=== PATIENT | female | born 1940 | race Caucasian/White ===

== ENCOUNTER → 2018-04-27 12:35 | Outpatient (CLI) | payer MEDICARE, OTHER, SELFPAY ==
--- NOTE | 2018-04-27 12:39 | BI_ITS ---
MAMMOGRAPHY - BILATERAL SCREENING REASON FOR EXAM: Female, 77 years old. Routine annual screening examination. PERTINENT HISTORY: Daughter with breast cancer. Grandmother with breast cancer. TECHNIQUE: Digital bilateral breast lois (3D mammographic acquisition) in the CC and MLO projections. 2-D mediolateral oblique (MLO) and craniocaudad (CC) views of both breasts were obtained. CAD: Full Field Digital Mammography with Computer Added Detection was performed. COMPARISON: Comparison is made with prior study dated December 13, 2016. FINDINGS: Breast Composition: The breasts are heterogeneously dense, which may obscure small masses. There are no dominant masses or suspicious calcifications. There are 3 subcentimeter well-defined nodular densities in the upper lateral portion of the left breast as compared to prior examination. These may represent small cysts. Correlation with ultrasound is recommended. No other significant abnormalities are identified. BI/SCREENING MAMM (CAD), BILAT IMPRESSION: There are 3 subcentimeter nodules in the left breast as described. Correlation with ultrasound is recommended. ASSESSMENT CATEGORY: BIRADS Category 0: Incomplete. Need additional imaging evaluation. A letter regarding these results will be sent to the patient by the facility within 30 days. Approximately 10% of breast cancers are not detected by mammography. A normal mammogram should not delay biopsy of a clinically suspicious abnormality. [id number] Electronically Signed: Florentino Narvaez MD at 13:35 EST Tel [phone], Service support ,
== END ==
PROVIDERS: Family Provider Family Medicine; PCP Family Medicine; Referring Provider Family Medicine; Visit Provider Family Medicine
DX: Z12.31 Encounter for screening mammogram for malignant neoplasm of breast (principal)
CPT/HCPCS: 77063; 77067

== ENCOUNTER → 2018-05-02 09:12 | Outpatient (CLI) | payer MEDICARE, OTHER, SELFPAY ==
--- NOTE | 2018-05-02 09:14 | US_ITS ---
STUDY: ULTRASOUND BREAST - LEFT REASON FOR EXAM: Female, 77 years old. Abnormal screening mammogram. TECHNIQUE: Axial and longitudinal images of the LEFT breast were performed with a high resolution ultrasound transducer. COMPARISON: Comparison is made with prior mammogram dated April 27, 2018 and prior ultrasound of the left breast dated December 23, 2011. FINDINGS: LEFT Breast: 3 subcentimeters cysts are seen. The cysts are located at the 2:00 radiant of the left breast. The largest measures 9 mm x 8 mm x 7 mm. There is also evidence of dilated subareolar ducts. US/Breast Limited Unilateral IMPRESSION: 3 small cysts are seen at the 2:00 position of the breast. Dilated retroareolar areolar ducts. ASSESSMENT CATEGORY: BIRADS Category 2: Benign. A letter regarding these results will be sent to the patient by the facility within 30 days. Electronically Signed: Florentino Narvaez MD at 10:55 EST Tel [phone], Service support ,
== END ==
PROVIDERS: Family Provider Family Medicine; PCP Family Medicine; Referring Provider Family Medicine; Visit Provider Family Medicine
DX: R92.8 Other abnormal and inconclusive findings on diagnostic imaging of breast (principal)
CPT/HCPCS: 76642

== ENCOUNTER 2018-05-06 05:31 | Day surgery (SDC) | payer MEDICARE, OTHER, SELFPAY ==
[2018-05-06 05:52] VITALS: BP 119/69; PULSE 60; RESP 18; TEMP 36.2; O2SAT 97; BMI 30.4
--- NOTE | 2018-05-06 06:17 | HP.PCM_ITS ---
Problem List (1) Personal history of colonic polyps Status: Acute History of Present Illness Date of Admission: 05/06/18 The patient is a 77 year old F who has a personal history of colon polyps. She otherwise enjoys good health. Most recent colonoscopy was 1 year ago.. 6 poly ps were identified in the cecum and one polyp was identified in the transverse colon. All of these were tubular adenoma. She denies bright red blood per rectum or melena. No abdominal pain. She has had 5 previous colonoscopies. There is no family history of colon cancer. Past Medical History Allergies Penicillins [PCN] Allergy (Mild, Verified 05/06/18 06:06) Rash A CHILD Home Medications: Ambulatory Orders Medication Instructions Recorded Atorvastatin Calcium [Lipitor] 10 mg PO QHS 05/04/18 Bisoprol/Hydrochlorothiazide [Ziac 1 tab PO DAILY 05/04/18 10/6.25 MG Tablet] Chlorpheniramine Maleate 4 mg PO DAILY 05/04/18 [Aller-Chlor] Losartan Potassium [Cozaar] 100 mg PO DAILY 05/04/18 Metformin HCl [Glucophage] 500 mg PO BIDCM 05/04/18 Multivitamins,Therapeutic 1 tablet PO DAILY 05/04/18 [Multivitamin] Sertraline HCl [Zoloft] 100 mg PO DAILY 05/04/18 Sitagliptin Phosphate [Januvia] 100 mg PO DAILY 05/04/18 Smoking Status: Never smoker Tobacco Use: Non-smoker Review of Systems Constitutional: Denies: Anorexia HEENT: Denies: Difficulty Swallowing Cardiovascular: Denies: Chest Pain Respiratory: Denies: Cough Gastrointestinal: Denies: Abdominal Pain Endocrine: Denies: Change in Body Habitus VTE Information - Inpt Only VTE Present on Admission: No Patient Problems: Active and Suspected Problems Personal history of colonic polyps (Acute) - Physical Exam General: Alert, Oriented x3, Cooperative Oral: Moist Mucosa Neck: Supple Lungs: Clear to auscultation Cardiovascular: Regular rate, Regular Rhythm Abdomen: Bowel Sounds Present, Soft, Non Tender Extremities: No clubbing Neurological: Cranial nerves II-XII grossly intact Psych/Mental Status: Normal Affect Vital Signs Temp Pulse Resp BP Pulse Ox 97.2 F L 60 18 119/69 97 05/06/18 05:52 05/06/18 05:52 05/06/18 05:52 05/06/18 05:52 05/06/18 05:52 Oxygen Delivery Method Room Air Weight: 166 lb 6.4 oz Body Mass Index (BMI) 30.4 Assessment/Plan All Active Problems Personal history of colonic polyps (Acute) I recommended colonoscopy with possible biopsy or polypectomy as indicated. She is aware of the technique, benefits, risks, alternatives. She has had an opportunity to ask and have questions answered. We will proceed as noted. She presents via our open access program today. Ramírez Aguilera M.D., F.A.C.S.
--- NOTE | 2018-05-06 06:30 | COLBX_PTH ---
PATIENT: DOC DICK LOC: EN U#:[id number] AGE/SX: 77/F ROOM: RE05/06/[address]: Dr. Ramírez Aguilera MD : 1940 BED: DIS: 05/06/2018 SPEC #: [id number] RECD: 05/06/18 08:59 STATUS: AMY AUGUSTINE #: [id number] LEX: 05/06/18 06:[address]: Ramírez Aguilera DEPT: SURGICAL PATHOLOGY RECD BY: Renato Trujillo ENTERED: 05/06/18 10:36 SP TYPE: COLON BX OTHR DR: Dr. Enrique Agarwal MD Tissues: A - Ascending colon B - Transverse colon C - Transverse colon D - Rectum, NOS Procedures: Surgery Specimen Level IV HEADER OPERATION: Colonoscopy (MOD) PRE-OP DIAGNOSIS: History colon polyps TISSUE SUBMITTED: A - Proximal ascending colon polyp biopsy, B - Proximal transverse polyp snare and polyp biopsy, C - Mid transverse polyp snare, D - Rectal polyp MICROSCOPIC DIAGNOSIS A. Proximal ascending colon polyp, biopsy: Tubular adenoma. B. Proximal transverse colon polyp, biopsy: Fragments of tubular adenoma. C. Mid transverse colon polyp, biopsy: Tubular adenoma. D. Rectal polyp, biopsy: Fragment of colonic mucosa with focal hyperplastic change. AM:angie 05/09/18 MICROSCOPIC DESCRIPTION Slides are reviewed. GROSS DESCRIPTION A - Received in fixative is one container labeled with the patient's name and designated proximal ascending polyp biopsy. The specimen consists of two irregular fragments of light perez soft tissue that in aggregate measure 0.5 x 0.2 x 0.1 cm. The specimen is totally submitted in one cassette. B - Received in fixative is one container labeled with the patient's name and designated proximal transverse polyp snare biopsy. The specimen consists of multiple irregular fragments of light perez soft tissue that in aggregate measure 2 x 0.5 x 0.1 cm. The specimen is totally submitted in one cassette. C - Received in fixative is one container labeled with the patient's name and designated mid transverse polyp snare. The specimen consists of a piece of perez-pink polyp measuring 0.7 x 0.6 x 0.3 cm. The specimen is totally submitted in one cassette. D - Received in fixative is one container labeled with the patient's name and designated rectal polyp. The specimen consists of a piece of perez-pink polyp measuring 0.3 x 0.2 x 0.1 cm. The specimen is totally submitted in one cassette. / SJ:angie 05/06/18 TC:5 CPT: 65448 x4
[2018-05-06 07:05] VITALS: BP 102/54; BP 109/52; BP 110/58; BP 110/66; BP 112/47; BP 115/64; BP 119/69; BP 120/103; BP 123/65; BP 138/60; PULSE 58; RESP 16; TEMP 36.4; O2SAT 87; O2SAT 89; O2SAT 94; O2SAT 98; O2SAT 99
--- NOTE | 2018-05-06 07:08 | OP.ENDO_ITS ---
Patient Name: Lala Archuleta Procedure Date: 05/06/2018 6:11 AM Date of : 1940 Age: 77 Procedure: Colonoscopy Indications: High risk colon cancer surveillance: Personal history of colonic polyps Providers: Ramírez Aguilera MD Referring MD: Enrique Agarwal Medicines: Midazolam 2.5 mg IV, Meperidine 75 mg IV Patient Profile: Last Colonoscopy: 1 year ago. Complications: No immediate complications. Procedure: Pre-Anesthesia Assessment: - Prior to the procedure, a History and Physical was performed, and patient medications and allergies were reviewed. The patient's tolerance of previous anesthesia was also reviewed. The risks and benefits of the procedure and the sedation options and risks were discussed with the patient. All questions were answered, and informed consent was obtained. Prior Anticoagulants: The patient has taken no previous anticoagulant or antiplatelet agents. ASA Grade Assessment: II - A patient with mild systemic disease. After reviewing the risks and benefits, the patient was deemed in satisfactory condition to undergo the procedure. After I obtained informed consent, the scope was passed under direct vision. Throughout the procedure, the patient's blood pressure, pulse, and oxygen saturations were monitored continuously. The colonoscope was introduced through the anus and advanced to the cecum, identified by appendiceal orifice and ileocecal valve. The colonoscopy was somewhat difficult due to a tortuous colon. The patient tolerated the procedure well. The quality of the bowel preparation was good. The ileocecal valve was photographed. Moderate Sedation: Moderate (conscious) sedation was personally administered by the endoscopist. The following parameters were monitored: oxygen saturation, heart rate, blood pressure, and response to care. Total physician intraservice time was 25 minutes. Scope In: 6:31:52 AM Scope Withdrawal Time 0 hours 16 minutes 45 seconds Scope Out: 7:00:32 AM Total Procedure Duration Time 0 hours 28 minutes 40 seconds Findings: Hemorrhoids were found on perianal exam. Multiple diverticula were found in the sigmoid colon and descending colon. A 5 mm polyp was found in the proximal ascending colon. The polyp was sessile. The polyp was removed with a cold biopsy forceps. Resection and retrieval were complete. A 6 mm polyp was found in the proximal transverse colon. The polyp was sessile. The polyp was removed with a hot snare. Resection and retrieval were complete. A 9 mm polyp was found in the mid transverse colon. The polyp was semi-pedunculated. The polyp was removed with a hot snare. Resection and retrieval were complete. A 5 mm polyp was found in the rectum. The polyp was sessile. The polyp was removed with a hot snare. Resection and retrieval were complete. Impression: - Hemorrhoids found on perianal exam. - Diverticulosis in the sigmoid colon and in the descending colon. - One 5 mm polyp in the proximal ascending colon, removed with a cold biopsy forceps. Resected and retrieved. - One 6 mm polyp in the proximal transverse colon, removed with a hot snare. Resected and retrieved. A small adjacent polyp was removed with cold forceps in the proximal transverse colon - One 9 mm polyp in the mid transverse colon, removed with a hot snare. Resected and retrieved. - One 5 mm polyp in the rectum, removed with a hot snare. Resected and retrieved. Recommendation: - Repeat colonoscopy in 1 year for surveillance. - Telephone my office for pathology results in 1 week. - Discharge patient to home. - Resume previous diet. - Continue present medications. Procedure Code(s): --- Professional --- 23589, Colonoscopy, flexible; with removal of tumor(s), polyp(s), or other lesion(s) by snare technique 95562, 59, Colonoscopy, flexible; with biopsy, single or multiple 05651, 59, Moderate sedation services provided by the same physician or other qualified health animal care giver performing the diagnostic or therapeutic service that the sedation supports, requiring the presence of an independent trained observer to assist in the monitoring of the patient's level of consciousness and physiological status; initial 15 minutes of intraservice time, patient age 5 years or older [address]79, Moderate sedation services provided by the same physician or other qualified health animal care giver performing the diagnostic or therapeutic service that the sedation supports, requiring the presence of an independent trained observer to assist in the monitoring of the patient's level of consciousness and physiological status; each additional 15 minutes intraservice time (List separately in addition to code for primary service) Diagnosis Code(s): --- Professional --- Z86.010, Personal history of colonic polyps K64.9, Unspecified hemorrhoids D12.2, Benign neoplasm of ascending colon D12.3, Benign neoplasm of transverse colon (hepatic flexure or splenic flexure) K62.1, Rectal polyp K57.30, Diverticulosis of large intestine without perforation or abscess without bleeding CPT copyright 2017 [employer]. All rights reserved. The codes documented in this report are preliminary and upon activity aid review may be revised to meet current compliance requirements. Ramírez Aguilera MD 05/06/2018 7:08:19 AM This report has been signed electronically. Number of Addenda: 0 Note Initiated On: 05/06/2018 6:11 AM
[2018-05-06 07:10] VITALS: BP 110/54; BP 119/69; PULSE 62; RESP 18; O2SAT 94
[2018-05-06 07:15] VITALS: BP 108/54; BP 119/69; PULSE 58; RESP 16; O2SAT 94
[2018-05-06 07:20] VITALS: BP 100/47; BP 119/69; PULSE 58; RESP 18; TEMP 36.5; O2SAT 93
[2018-05-06 07:43] VITALS: BP 119/69
--- OUTSIDE RECORDS SUMMARY | 2018-06-21 17:23 | XMS RPT_ITS ---
:1940 Author Organization OHIP Care Team Providers Name Role Phone CHIQUITA TUCKER II Attending Unavailable Ramírez Aguilera Attending Unavailable Ramírez Aguilera Referring Unavailable SUPA SMITH Primary Care Unavailable Ramírez Aguilera Consulting Unavailable Nurse, Surgery Attending Unavailable SUPA SMITH Referring Unavailable Ramírez Aguilera Attending Unavailable Ramírez Aguilera Referring Unavailable SUPA SMITH Primary Care Unavailable SUPA MSITH Attending Unavailable SUPA SMITH Referring Unavailable SUPA SMITH Primary Care Unavailable SUPA SMITH Attending Unavailable SUPA SMITH Referring Unavailable SUPA SMITH Primary Care Unavailable PROBLEMS PROBLEMS No Problem Records FoundPROCEDURES PROCEDURES No Procedure Records FoundRESULTS RESULTS OPERATIVE REPORT - Observed: 05/06/2018 Status: F Source: [facility] ENDOSCOPY 7:08 AM [facility] REPOSITORY [facility] Medical Records Department [address] [place] [address] Operative Report - Endoscopy MR#: [id number] Acct: [id number] Name: LALA DICK Rep #: [id number] : 1940 77 From: Ramírez Aguilera MD PCP: Supa Smith MD [place] [facility] [place] Name: Lala Dick Procedure Date: 05/06/2018 6:11 AM Date of : 1940 Age: 77 Procedure: Colonoscopy Indications: High risk colon cancer surveillance: Personal history of colonic polyps Providers: Ramírez Aguilera MD Referring MD: Supa Smith Medicines: Midazolam 2.5 mg IV, Meperidine 75 mg IV Patient Profile: Last Colonoscopy: 1 year ago. Complications: No immediate complications. Procedure: Pre-Anesthesia Assessment: - Prior to the procedure, a History and Physical was performed, and patient medications and allergies were reviewed. The patient's tolerance of previous anesthesia was also reviewed. The risks and benefits of the procedure and the sedation options and risks were discussed with the patient. All questions were answered, and informed consent was obtained. Prior Anticoagulants: The patient has taken no previous anticoagulant or antiplatelet agents. ASA Grade Assessment: II - A patient with mild systemic disease. After reviewing the risks and benefits, the patient was deemed in satisfactory condition to undergo the procedure. After I obtained informed consent, the scope was passed under direct vision. Throughout the procedure, the patient's blood pressure, pulse, and oxygen saturations were monitored continuously. The colonoscope was introduced through the anus and advanced to the cecum, identified by appendiceal orifice and ileocecal valve. The colonoscopy was somewhat difficult due to a tortuous colon. The patient tolerated the procedure well. The quality of the bowel preparation was good. The ileocecal valve was photographed. Moderate Sedation: Moderate (conscious) sedation was personally administered by the endoscopist. The following parameters were monitored: oxygen saturation, heart rate, blood pressure, and response to care. Total physician intraservice time was 25 minutes. Scope In: 6:31:52 AM Scope Withdrawal Time 0 hours 16 minutes 45 seconds Scope Out: 7:00:32 AM Total Procedure Duration Time 0 hours 28 minutes 40 seconds Findings: Hemorrhoids were found on perianal exam. Multiple diverticula were found in the sigmoid colon and descending colon. A 5 mm polyp was found in the proximal ascending colon. The polyp was sessile. The polyp was removed with a cold biopsy forceps. Resection and retrieval were complete. A 6 mm polyp was found in the proximal transverse colon. The polyp was sessile. The polyp was removed with a hot snare. Resection and retrieval were complete. A 9 mm polyp was found in the mid transverse colon. The polyp was semi-pedunculated. The polyp was removed with a hot snare. Resection and retrieval were complete. A 5 mm polyp was found in the rectum. The polyp was sessile. The polyp was removed with a hot snare. Resection and retrieval were complete. Impression: - Hemorrhoids found on perianal exam. - Diverticulosis in the sigmoid colon and in the descending colon. - One 5 mm polyp in the proximal ascending colon, removed with a cold biopsy forceps. Resected and retrieved. - One 6 mm polyp in the proximal transverse colon, removed with a hot snare. Resected and retrieved. A small adjacent polyp was removed with cold forceps in the proximal transverse colon - One 9 mm polyp in the mid transverse colon, removed with a hot snare. Resected and retrieved. - One 5 mm polyp in the rectum, removed with a hot snare. Resected and retrieved. Recommendation: - Repeat colonoscopy in 1 year for surveillance. - Telephone my office for pathology results in 1 week. - Discharge patient to home. - Resume previous diet. - Continue present medications. Procedure Code(s): --- Professional --- 62166, Colonoscopy, flexible; with removal of tumor(s), polyp(s), or other lesion(s) by snare technique 77270, 59, Colonoscopy, flexible; with biopsy, single or multiple 63755, 59, Moderate sedation services provided by the same physician or other qualified health medical care evaluation specialist performing the diagnostic or therapeutic service that the sedation supports, requiring the presence of an independent trained observer to assist in the monitoring of the patient's level of consciousness and physiological status; initial 15 minutes of intraservice time, patient age 5 years or older 11889, Moderate sedation services provided by the same physician or other qualified health medical care evaluation specialist performing the diagnostic or therapeutic service that the sedation supports, requiring the presence of an independent trained observer to assist in the monitoring of the patient's level of consciousness and physiological status; each additional 15 minutes intraservice time (List separately in addition to code for primary service) Diagnosis Code(s): --- Professional --- Z86.010, Personal history of colonic polyps K64.9, Unspecified hemorrhoids D12.2, Benign neoplasm of ascending colon D12.3, Benign neoplasm of transverse colon (hepatic flexure or splenic flexure) K62.1, Rectal polyp K57.30, Diverticulosis of large intestine without perforation or abscess without bleeding CPT copyright 2017 [employer]. All rights reserved. The codes documented in this report are preliminary and upon orthopedic coder review may be revised to meet current compliance requirements. Ramírez Aguilera MD 05/06/2018 7:08:19 AM This report has been signed electronically. Number of Addenda: 0 Note Initiated On: 05/06/2018 6:11 AM 05/06/18707 Date Ramírez Aguilera MD Cosigner Signature: Date (if indicated) CC: Supa Smith MD; Ramírez Aguilera MD Date Dictated: 05/06/18610 Date Transcribed: Gm Video: ANSON Signed COLON BIOPSY (CHOOSE Observed: 05/06/2018 Status: F Source: [facility]) 6:30 AM [facility] REPOSITORY Patient: LALA DICK : 1940 (77/F) Acct Num: [id number] Phys: Ramírez Aguilera MD Unit Num: [id number] Loc: EN Specimen: [id number] Received: 05/06/1859 Spec Type: COLON BX TISSUES 1 TISSUES: A. Ascending colon B. Transverse colon C. Transverse colon D. Rectum, NOS GROSS DESCRIPTION A - Received in fixative is one container labeled with the patient's name and designated proximal ascending polyp biopsy. The specimen consists of two irregular fragments of light perez soft tissue that in aggregate measure 0.5 x 0.2 x 0.1 cm. The specimen is totally submitted in one cassette. B - Received in fixative is one container labeled with the patient's name and designated proximal transverse polyp snare biopsy. The specimen consists of multiple irregular fragments of light perez soft tissue that in aggregate measure 2 x 0.5 x 0.1 cm. The specimen is totally submitted in one cassette. C - Received in fixative is one container labeled with the patient's name and designated mid transverse polyp snare. The specimen consists of a piece of perez-pink polyp measuring 0.7 x 0.6 x 0.3 cm. The specimen is totally submitted in one cassette. D - Received in fixative is one container labeled with the patient's name and designated rectal polyp. The specimen consists of a piece of perez-pink polyp measuring 0.3 x 0.2 x 0.1 cm. The specimen is totally submitted in one cassette. / SJ:angie 05/06/18 TC:5 CPT: 20410 x4 HEADER OPERATION: Colonoscopy (MOD) PRE-OP DIAGNOSIS: History colon polyps TISSUE SUBMITTED: A - Proximal ascending colon polyp biopsy, B - Proximal transverse polyp snare and polyp biopsy, C - Mid transverse polyp snare, D - Rectal polyp MICROSCOPIC DESCRIPTION Slides are reviewed. MICROSCOPIC DIAGNOSIS A. Proximal ascending colon polyp, biopsy: Tubular adenoma. B. Proximal transverse colon polyp, biopsy: Fragments of tubular adenoma. C. Mid transverse colon polyp, biopsy: Tubular adenoma. D. Rectal polyp, biopsy: Fragment of colonic mucosa with focal hyperplastic change. AM:angie 05/09/18 Signed Jose De Jesus Marin DO 05/09/18 <signature on file> Performed By: #### PCOLBX #### [facility] [address] [place], [address] HISTORY AND PHYSICAL Observed: 05/06/2018 Status: F Source: DONNA EXAM 6:19 AM [facility] REPOSITORY [facility] Medical Records Department [address] [address] [place] [address] History and Physical 05/06/18 0611 MR#: [id number] Acct: [id number] Name: LALA DICK Rep #: [id number] : 1940 77 From: Ramírez Aguilera MD PCP: Supa Smith MD Status: REG [facility] Y Location: [place] [address]- Problem List (1) Personal history of colonic polyps Status: Acute History of Present Illness Date of Admission: 05/06/18 The patient is a 77 year old F who has a personal history of colon polyps. She otherwise enjoys good health. Most recent colonoscopy was 1 year ago.. 6 polyps were identified in the cecum and one polyp was identified in the transverse colon. All of these were tubular adenoma. She denies bright red blood per rectum or melena. No abdominal pain. She has had 5 previous colonoscopies. There is no family history of colon cancer. Past Medical History Allergies Penicillins [PCN] Allergy (Mild, Verified 05/06/18 06:06) Rash A CHILD Home Medications: Ambulatory Orders Medication Instructions Recorded Atorvastatin Calcium [Lipitor] 10 mg PO QHS 05/04/18 Bisoprol/Hydrochlorothiazide [Ziac 1 tab PO DAILY 05/04/18 Smoking Status: Never smoker Tobacco Use: Non-smoker Review of Systems Constitutional: Denies: Anorexia HEENT: Denies: Difficulty Swallowing Cardiovascular: Denies: Chest Pain Respiratory: Denies: Cough Gastrointestinal: Denies: Abdominal Pain Endocrine: Denies: Change in Body Habitus VTE Information - Inpt Only VTE Present on Admission: No Patient Problems: Active and Suspected Problems Personal history of colonic polyps (Acute) - Physical Exam General: Alert, Oriented x3, Cooperative Oral: Moist Mucosa Neck: Supple Lungs: Clear to auscultation Cardiovascular: Regular rate, Regular Rhythm Abdomen: Bowel Sounds Present, Soft, Non Tender Extremities: No clubbing Neurological: Cranial nerves II-XII grossly intact Psych/Mental Status: Normal Affect Vital Signs Temp Pulse Resp BP Pulse Ox 97.2 F L 60 18 119/69 97 05/06/18 05:52 05/06/18 05:52 05/06/18 05:52 05/06/18 05:52 05/06/18 05:52 Oxygen Delivery Method Room Air Weight: 166 lb 6.4 oz Body Mass Index (BMI) 30.4 Assessment/Plan All Active Problems Personal history of colonic polyps (Acute) I recommended colonoscopy with possible biopsy or polypectomy as indicated. She is aware of the technique, benefits, risks, alternatives. She has had an opportunity to ask and have questions answered. We will proceed as noted. She presents via our open access program today. Ramírez Aguilera M.D., F.A.C.S. 05/06/18 0619 <Electronically signed by Ramírez Aguilera MD> Date Ramírez Aguilera MD Cosigner Signature: Date (if applicable) CC: Supa Smith MD; Ramírez Aguilera MD Signed BREAST LIMITED Observed: 05/02/2018 Status: F Source: [facility] UNILATERAL 9:15 AM [facility] REPOSITORY [facility] Imaging Services [address] [place] [address] Breast Limited Unilateral MR#: [id number] Acct: [id number] Name: LALA DICK Rep #: [id number] : 1940 F 77 From: Florentino Narvaez MD PCP: Supa Smith MD Status: REG CLI Study: Breast Limited Unilateral Date of Exam: 05/02/18 Exam# [id number] Ordering Dr: Supa Smith MD STUDY: ULTRASOUND BREAST - LEFT REASON FOR EXAM: Female, 77 years old. Abnormal screening mammogram. TECHNIQUE: Axial and longitudinal images of the LEFT breast were performed with a high resolution ultrasound transducer. COMPARISON: Comparison is made with prior mammogram dated April 27, 2018 and prior ultrasound of the left breast dated December 23, 2011. FINDINGS: LEFT Breast: 3 subcentimeters cysts are seen. The cysts are located at the 2:00 radiant of the left breast. The largest measures 9 mm x 8 mm x 7 mm. There is also evidence of dilated subareolar ducts. US/Breast Limited Unilateral IMPRESSION: 3 small cysts are seen at the 2:00 position of the breast. Dilated retroareolar areolar ducts. ASSESSMENT CATEGORY: BIRADS Category 2: Benign. A letter regarding these results will be sent to the patient by the facility within 30 days. Electronically Signed: Florentino Narvaez MD at 10:55 EST Tel [phone], Service support , CC: Supa Smith MD Gm Video: Signed SCREENING MAMM (CAD), Observed: 04/27/2018 Status: F Source: [facility] 12:40 PM [facility] REPOSITORY [facility] Imaging Services [address] [place] [address] SCREENING MAMM (CAD), [facility] MR#: [id number] Acct: [id number] Name: LALA DICK Rep #: [id number] : 1940 F 77 From: Florentino Narvaez MD PCP: Supa Smith MD Status: REG CLI Study: SCREENING MAMM (CAD), BIL Date of Exam: 04/27/18 Exam# [id number] Ordering Dr: Supa Smith MD MAMMOGRAPHY - BILATERAL SCREENING REASON FOR EXAM: Female, 77 years old. Routine annual screening examination. PERTINENT HISTORY: Daughter with breast cancer. Grandmother with breast cancer. TECHNIQUE: Digital bilateral breast lois (3D mammographic acquisition) in the CC and MLO projections. 2-D mediolateral oblique (MLO) and craniocaudad (CC) views of both breasts were obtained. CAD: Full Field Digital Mammography with Computer Added Detection was performed. COMPARISON: Comparison is made with prior study dated December 13, 2016. FINDINGS: Breast Composition: The breasts are heterogeneously dense, which may obscure small masses. There are no dominant masses or suspicious calcifications. There are 3 subcentimeter well-defined nodular densities in the upper lateral portion of the left breast as compared to prior examination. These may represent small cysts. Correlation with ultrasound is recommended. No other significant abnormalities are identified. BI/SCREENING MAMM (CAD), BILAT IMPRESSION: There are 3 subcentimeter nodules in the left breast as described. Correlation with ultrasound is recommended. ASSESSMENT CATEGORY: BIRADS Category 0: Incomplete. Need additional imaging evaluation. A letter regarding these results will be sent to the patient by the facility within 30 days. Approximately 10% of breast cancers are not detected by mammography. A normal mammogram should not delay biopsy of a clinically suspicious abnormality. [id number] Electronically Signed: Florentino Narvaez MD at 13:35 EST Tel [phone], Service support , CC: Supa Smith MD Gm Video: Signed PROGRESS Observed: 03/29/2018 Status: COMPLETED Source: [place] 2:24 PM [facility] REPOSITORY HNO ID: [id number] Author: Chiquita Tucker II Service: (none) Author Type: TRACK AND FIELD COACH Type: Progress Notes Filed: 03/29/2018 2:29 PM Note Text: Assessment and Plan H52.13 Myopia, bilateral (primary encounter diagnosis) H52.4 Presbyopia H52.223 Regular astigmatism of both eyes Comment: Shift in glasses power demonstrated to patient. Update glasses as desired. E11.9 Controlled type 2 diabetes mellitus without complication, without long-term current use of insulin ([facility]) Comment: Examination shows no ocular diabetic complications today. Discussed need for optimal diabetes control to minimize chance of ocular complications. Advise patient to immediately report worsening in status or additional symptoms. Continue yearly dilated eye examinations. 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 Patient defers surgical correction until a later time. Recheck in one year. H43.393 Vitreous floaters of both eyes Comment: Vitreal floaters stable both eyes. Retinas flat and intact with no apparent retinal tear or traction. Monitor yearly. I have confirmed and edited as necessary the relevant ophthalmic history, ROS, and the neuro exam findings as obtained by others. I have seen and examined Lala Dick. I have discussed the case and the management of this patient's care with the Resident/Fellow, if applicable. I also have reviewed and agree with the assessment and plan as stated above and agree with all of its relevant components. Chiquita Tucker, II, OD ALLERGIES ALLERGIES DATE TYPE / CODE NAME / CODE REACTION SEVERITY SOURCE 05/06/2018 Drug Penicillins/T92805 Rash [place] Samir Allergy/416 0476(RXNORM) [facility] 027878([facility] ED CT) Repository 08/16/2009 Drug PENICILLINS [facility] Class/51555 Main [place] 1003[facility] ENCOUNTERS ENCOUNTERS ADMIT/DISCHARGE ACCOUNT ADMITTING ENCOUNTER LOCATION SOURCE NUMBER CLASS 05/06/2018 [id number] Ambulatory BMSBuilding:Kim Dawson MS.CF.[facility] Repository 05/06/2018/05/06/[id number] ing:ENRoom: Repository AC10 05/02/2018 [id number] Ambulatory [facility] ing:OPUS Repository 04/27/2018 [id number] [facility] ing:OPBI Repository 04/11/2018/04/11/20 [id number] Ambulatory BMSBuilding:Kim Dawson 18 MS.[facility] Repository 03/29/2018/03/30/20 [id number] Ambulatory [address] Repository PAYERS PAYERS ENCOUNTER GUARANTOR PAYER SUBSCRIBER SOURCE 05/06/2018 LALA Dumas Primary Insurance:MAUTRENÉE [id number] [facility] Number: MAYELINDOB: [facility] MEBJWDRBEffective [id number], Date:8423-60-81UL BOX Repository [place] [address]Fis: [id number] ALVIN SALAS [address]WP: [phone] 05/06/2018 Secondary LALA E [place] Insurance:GUARANTEE TAYLORDOB: Community [employer] COPolicy [id number] Hospital Number: Repository [id number] Date:3128-02-78BV [address] [place] [address]SD: 05/06/2018 Tertiary Insurance:SELF NOT GIVENUNK [place] PAY INSURANCEPolicy Community Number: Effective Hospital Date:2018-05-06 Repository 05/06/2018 LALA E Primary Insurance:AETNA LALA E [place] [id number] MCRPolicy Number: TAYLORDOB: [facility] BJWDRBAnthonylds hospital [id number] Hall Hospital, Date:9916-45-21ZB BOX Repository [place] [address]Xzv: [id number] PARSONS [address]WP: [phone] 05/06/2018 Secondary LALA E [place] Insurance:GUARANTEE TAYLORDOB: Community [employer] COPolicy [id number] Hospital Number: Repository [id number] Date:5650-69-09TP [address] [place] [address]IH: 05/06/2018 Tertiary Insurance:SELF NOT GIVENUNK [place] PAY INSURANCEPolicy Community Number: Effective Hospital Date:2018-04-11 Repository 05/02/2018 LALA E Primary Insurance:AETNA LALA E [place] [id number] MCRPolicy Number: TAYLORDOB: [facility]BJWDRBAnthonyive [id number] Hall Hospital, Date:2283-85-57OT BOX Repository [place] [address]Qct: [id number] [address]WP: [phone] 05/02/2018 Secondary LALA E [place] Insurance:GUARANTEE TAYLORDOB: Community [employer] COPolicy [id number] Hospital Number: Repository [id number] Date:7409-55-68EF [address] [place] [address]OD: 05/02/2018 Tertiary Insurance:SELF NOT GIVENUNK [place] PAY INSURANCEPolicy Community Number: Effective Hospital Date:2018-04-28 Repository 04/27/2018 LALA E Primary Insurance:AETNA LALA E Sam[place] [id number] [facility] Number: MAYELINDOB: [facility] IndianaBJWDRBEffective [id number] Hall Hospital, Date:5681-61-26BK [address]OX Repository [place] [address]Jnq: [id number] [address]WP: [phone] 04/27/2018 Secondary LALA E [place] Insurance:GUARANTEE TAYLORDOB: Community [employer] COPolicy [id number] Hospital Number: Repository [id number] Date:5454-63-46JX [address] [place] [address]YH: 04/27/2018 Tertiary Insurance:SELF NOT GIVENUNK Samir PAY INSURANCEPolicy Community Number: Effective Hospital Date:2018-04-26 Repository 04/11/2018 LALA E Primary Insurance:AETNA LALA E [place] [id number] [facility]ITALPolicy Number: MAYELINDOB: [facility] IndianaBJWDRBEffective [id number] [facility] Date:6532-39-46AI [address] Repository [place], [place] [address]Juh: [id number] [place] [address]WP: [phone] 04/11/2018 Secondary LALA E Samir Insurance:GUARANTEE TAYLORDOB: Community [employer] COPolicy [id number] Hospital Number: Repository [id number] Date:3696-57-07CD [address] [place] [address]FC: 04/11/2018 Tertiary Insurance:SELF NOT GIVENUNK Samir PAY INSURANCEPolicy Community Number: Effective Hospital Date:2018-04-11 Repository
== END 2018-05-06 08:51 | disposition home or self-care (01) ==
LOC: EN 05:32 → AC 05:33
PROVIDERS: Family Provider Family Medicine; PCP Family Medicine; Referring Provider Surgery; Visit Provider Surgery
PROC: 0DJD8ZZ Inspection of Lower Intestinal Tract, Via Natural or Artificial Opening Endoscopic (ICD-10-PCS; CPT 45378; principal; 2018-05-06 06:25)
DX: D12.2 Benign neoplasm of ascending colon (principal); D12.3 Benign neoplasm of transverse colon; K62.1 Rectal polyp; K64.9 Unspecified hemorrhoids; K57.30 Diverticulosis of large intestine without perforation or abscess without bleeding; Z86.010 Personal history of colon polyps
CPT/HCPCS: 45380; 45385; 88305; 99152; 99153; J7120

== ENCOUNTER → 2019-10-25 10:44 | Outpatient (CLI) | payer MEDICARE, OTHER, SELFPAY ==
--- NOTE | 2019-10-25 10:49 | BI_ITS ---
MAMMOGRAPHY - BILATERAL SCREENING REASON FOR EXAM: Female, 79 years old. Routine annual screening examination. PERTINENT HISTORY: Daughter with breast cancer. Grandmother with breast cancer. Aunt with breast cancer. TECHNIQUE: Digital bilateral breast david (3D mammographic acquisition) in the CC and MLO projections. 2-D mediolateral oblique (MLO) and craniocaudad (CC) views of both breasts were obtained. CAD: Full Field Digital Mammography with Computer Added Detection was performed. COMPARISON: Comparison is made with prior examination dated April 27, 2018 and June 15, 2016. FINDINGS: Breast Composition: The breasts are heterogeneously dense, which may obscure small masses. There are no dominant masses or suspicious calcifications. 9.7 mm by 11 mm well-defined nodule in the upper lateral portion of the left breast. This has increased slightly in size as compared to prior study. Prior sonogram demonstrated 3 small cysts at that site. No other significant abnormalities are identified. There has been no significant change since the prior study. BI/SCREEN MAMM (CAD) W/DAVID BILAT IMPRESSION: Stable bilateral screening mammogram. Yearly follow-up mammogram recommended. (A) ASSESSMENT CATEGORY: BIRADS Category 2: Benign. A letter regarding these results will be sent to the patient by the facility within 30 days. Approximately 10% of breast cancers are not detected by mammography. A normal mammogram should not delay biopsy of a clinically suspicious abnormality. [id number] Electronically Signed: Florentino Narvaez, at 12:22 EDT , Service support ,
== END ==
PROVIDERS: Referring Provider Family Medicine; Visit Provider Family Medicine
DX: Z12.31 Encounter for screening mammogram for malignant neoplasm of breast (principal)
CPT/HCPCS: 77063; 77067

== ENCOUNTER 2020-04-05 06:11 | Day surgery (SDC) | payer MEDICARE, OTHER, SELFPAY ==
[2020-03-05 13:21] VITALS: BMI 30.2
[2020-04-05] VITALS (8 sets, daily range): BP systolic 94–117; BP diastolic 47–73; PULSE 59–80; RESP 16–18; TEMP 35.8–36.6; O2SAT 92–100; BMI 29.4
--- NOTE | 2020-04-05 06:22 | PCM.HP.BLA ---
Problem List (1) Personal history of colonic polyps Status: Acute History and Physical Date of Admission: 04/05/20 Intake Visit Reasons: C-Scope Chief Complaint: c-scope consult Ceiling Insulation Blower Required: No Is patient in pain?: No Allergies Penicillins [PCN] Allergy (Mild, Verified 03/05/20 13:22) Rash Medications Atorvastatin Calcium [Lipitor] 10 mg PO QHS 05/04/18 [History Confirmed 03/05/20] Bisoprol/Hydrochlorothiazide [Ziac 10/6.25 MG Tablet] 1 tab PO DAILY 05/04/18 [History Confirmed 03/05/20] Losartan Potassium [Cozaar] 100 mg PO DAILY 05/04/18 [History Confirmed 03/05/20] Multivitamins,Therapeutic [Multivitamin] 1 tab PO DAILY 05/04/18 [History Confirmed 03/05/20] Sitagliptin Phosphate [Januvia] 100 mg PO DAILY 05/04/18 [History Confirmed 03/05/20] metFORMIN HCl [Glucophage] 500 mg PO BIDCM 05/04/18 [History Confirmed 03/05/20] cholecalciferol (vitamin D3) 25 mcg (1,000 unit) capsule 25 mcg PO DAILY 03/05/20 [History Confirmed 03/05/20] [facility] Medical History Personal history of colonic polyps (Acute) Anxiety (Acute) Diabetes (Acute) Surgical History (Updated 03/05/20 @ 13:20 by Mirna Armando) History of appendectomy (Acute) History of cystoscopy (Acute) History of oophorectomy (Acute) History of right breast biopsy (Acute) history surgery left thumb (Acute) Family History (Updated 03/05/20 @ 13:21 by Mirna Armando) Daughter Breast cancer Aunt Breast cancer Mother Diabetes Brother Diabetes Heart disease Father CVA (cerebral vascular accident) Social History (Updated 03/05/20 @ 13:[address] Ramírez Aguilera MD) Smoking Status: Never smoker alcohol intake: never substance use type: does not use HPI HPI HPI: DOC DICK, is a 79 F who presents to the office today for surgical consultation regarding a personal history of multiple colon polyps. Patient's primary care physician is Dr. Enrique Agarwal and a written copy of my surgical recommendations will be returned to him.. I have assisted the patient May 06, 2018. She had multiple polyps at that time. Proximal ascending colon polyp tubular adenoma proximal transverse colon polyp tubular adenoma mid transverse colon polyp tubular adenoma and a rectal polyp which had hyperplastic change. I felt the bowel prep was good however it was noted that the patient had a tortuous colon. She additionally states that over her lifetime she has had she thinks for previous colonoscopies and she believes that she has had polyps identified on all of those. There may have been one when she did have polyps. She denies any bright red blood per rectum or melena. She is not on any anticoagulants. My was concern was due to the tortuosity and multiplicity of polyps that a shorter term colonoscopy would be pertinent. She is enjoying a good quality of life right now even though she is 79. HPI HPI HPI: DOC DICK, is a 79 F who presents to the office today for ROS General General: No weight change, appetite, fatigue, colon cancer, breast cancer or weakness HEENT HEENT: No difficulty swallowing, eye injury, eye surgery, swollen glands or hoarseness Endo Endocrine: Yes diabetes mellitus; no thyroid disease, thyroid cancer, Hair loss, heat intolerance or cold intolerance Skin Skin: No rash or changing moles Breast Breast: No left breast lump, right breast lump, nipple discharge, breast pain, abnormal mammogram, abnormal US or breast enlargement Musc Musculoskeletal: No back problems, arthritis, rheumatoid arthritis, gout or joint pain Cardio Cardiovascular: No murmur, pacemaker, heart disease, atrial fibrillation, high blood pressure, heart attack, heart stent, palpitations, shortness of breat with exertion or chest pain Psych Psychiatric: Yes anxiety; no depression or hearing voices Resp Respiratory: No shortness of breath, No sleep apnea, No cough, No COPD, No asthma, No emphysema, No wheezing Gastro Gastrointestinal: No abdominal pain, No nausea or vomiting, No diarrhea, No constipation, No blood in stool, No acid reflux, No hemorrhoids, No ulcers, No gallbladder problem, No black,tarry stools Deandre Hematologic: No blood thinners, No blood disorders, No bleeding, No anemia, No blood clots Neuro Neurologic: No system reviewed and no additional complaints, except as docu, No as per HPI, No abnormal walking, No abnormal hearing, No abnormal movements, No abnormal speech, No behavioral changes, No burning sensations, No confusion, No seizure-like activity, No unsteadiness, No dizziness, No localized weakness, No frequent falls, No headache(s), No lack of coordination, No loss of vision, No memory loss, No numbness, No other visual disturbances, No radiating pain, No restless legs, No sensory deficit, No fainting, No tingling, No tremor(s), No weakness, No other Exam Const General: cooperative, healthy appearing, comfortable Nutritional Appearance: obese Orientation: alert, awake [facility] Head: normal to inspection Eyes General: appearance normal, both eyes and all related structures Chest Chest palpation & inspection: normal inspection of the chest Breast Palpation: No nipple discharge Resp Effort & Inspection: normal respiratory effort Auscultation: clear to auscultation bilaterally Cardio Rate: regular rate Rhythm: regular rhythm Heart Sounds: no murmurs GI Inspection: normal to inspection Palpation: soft Auscultation: normal bowel sounds Musc Cervical Spine: normal cervical lordosis Neuro Cognition: normal cognition Extrem General: no calf tenderness Psych Affect: normal affect Assessment & Plan Problems 1. History of colonic polyps Z86.010 Plan I recommended the patient a colonoscopy with possible biopsy or polypectomy is indicated. She is aware of the technique, benefit, risk and alternatives. She has had an opportunity to ask and have questions answered. We will schedule and proceed at her discretion. She previously did well with IV sedation and received 2.5 mg of Versed and 75 mg of Demerol. A tortuous colon was identified consideration for possible utilization of an adult scope. Multiple polyps were previously identified. We will schedule procedure at her discretion. Copy: Dr Enrique Aguilera M.D., F.A.C.S. Orders Orders: Colonoscopy Today Z86.010 Coding Level of Care Code Off vis,est,level 2 Diagnoses History of colonic polyps Z86.010 I have re-examined the patient. There are no clinical changes since date of exam. Procedure Criteria Procedure Type: Elective COVID Risk Discussion: The surgeon/proceduralist and patient have discussed in detail the risk of exposure to and/or potential harm posed by the COVID-19 virus with having a surgery/procedure at this time versus the risk of delaying the surgery/procedure. It is not possible to know either the risk of delaying the surgery or procedure or chance of getting an infection with perfect accuracy, but a joint decision was made between the patient and the surgeon/proceduralist to proceed at this time with the scheduled surgery/procedure as indicated on the consent form.
[2020-04-05] MEDS: Lactated Ringers 1,000 ML 100 ML IV (06:56)
[2020-04-05 07:10] LABS: Bedside Glucose 144 mg/dL (70-110)
--- NOTE | 2020-04-05 07:27 | OP.CCLET_ITS ---
04/05/2020 Enrique Agarwal Re : Colonoscopy procedure for Lala Archuleta Dear Stefano This procedure was performed on Sunday, April 05, 2020. My impressions and recommendations are as follows: Impressions : - Non-thrombosed external hemorrhoids, non-thrombosed internal hemorrhoids and internal hemorrhoids that prolapse with straining, but spontaneously regress to the resting position (Grade II) found on digital rectal exam. - Diverticulosis in the sigmoid colon and in the descending colon. - Tortuous colon. - The examination was otherwise normal. - No specimens collected. Recommendations : - Discharge patient to home. - Resume previous diet. - Continue present medications. - Repeat colonoscopy is not recommended due to current age (66 years or older) for screening purposes. My findings are described in the full procedure note, which is enclosed. If I can be of further assistance, please feel free to contact me at Doctor phone number(s): Work: . Sincerely, Ramírez Aguilera MD 04/05/2020 7:26:31 AM This report has been signed electronically.
--- NOTE | 2020-04-05 07:27 | OP.COLON_ITS ---
Patient Name: Lala Archuleta Procedure Date: 04/05/2020 6:59 AM Date of : 1940 Age: 79 Procedure: Colonoscopy Indications: High risk colon cancer surveillance: Personal history of colonic polyps Providers: Ramírez Aguilera MD Referring MD: Enrique Agarwal Medicines: Midazolam 2.5 mg IV, Meperidine 75 mg IV Patient Profile: Last Colonoscopy: April 2018. Complications: No immediate complications. Procedure: Pre-Anesthesia Assessment: - Prior to the procedure, a History and Physical was performed, and patient medications and allergies were reviewed. The patient's tolerance of previous anesthesia was also reviewed. The risks and benefits of the procedure and the sedation options and risks were discussed with the patient. All questions were answered, and informed consent was obtained. Prior Anticoagulants: The patient has taken no previous anticoagulant or antiplatelet agents. ASA Grade Assessment: II - A patient with mild systemic disease. After reviewing the risks and benefits, the patient was deemed in satisfactory condition to undergo the procedure. After I obtained informed consent, the scope was passed under direct vision. Throughout the procedure, the patient's blood pressure, pulse, and oxygen saturations were monitored continuously. The adult colonoscope was introduced through the anus and advanced to the cecum, identified by appendiceal orifice and ileocecal valve. The colonoscopy was performed without difficulty. The patient tolerated the procedure well. The quality of the bowel preparation was good. The ileocecal valve and the appendiceal orifice were photographed. Moderate Sedation: Moderate (conscious) sedation was personally administered by the endoscopist. The following parameters were monitored: oxygen saturation, heart rate, blood pressure, and response to care. Total physician intraservice time was 15 minutes. Scope In: 7:07:37 AM Scope Withdrawal Time 0 hours 5 minutes 55 seconds Scope Out: 7:21:17 AM Total Procedure Duration Time 0 hours 13 minutes 40 seconds Findings: The digital rectal exam findings include non-thrombosed external hemorrhoids, non-thrombosed internal hemorrhoids and internal hemorrhoids that prolapse with straining, but spontaneously regress to the resting position (Grade II). Pertinent negatives include normal sphincter tone. Multiple diverticula were found in the sigmoid colon and descending colon. The sigmoid colon was moderately tortuous. Advancing the scope required using manual pressure. The exam was otherwise without abnormality. Impression: - Non-thrombosed external hemorrhoids, non-thrombosed internal hemorrhoids and internal hemorrhoids that prolapse with straining, but spontaneously regress to the resting position (Grade II) found on digital rectal exam. - Diverticulosis in the sigmoid colon and in the descending colon. - Tortuous colon. - The examination was otherwise normal. - No specimens collected. Recommendation: - Discharge patient to home. - Resume previous diet. - Continue present medications. - Repeat colonoscopy is not recommended due to current age (66 years or older) for screening purposes. Procedure Code(s): --- Professional --- 55905, Colonoscopy, flexible; diagnostic, including collection of specimen(s) by brushing or washing, when performed (separate procedure) 17871, 59, Moderate sedation services provided by the same physician or other qualified health home care manager rn performing the diagnostic or therapeutic service that the sedation supports, requiring the presence of an independent trained observer to assist in the monitoring of the patient's level of consciousness and physiological status; initial 15 minutes of intraservice time, patient age 5 years or older Diagnosis Code(s): --- Professional --- Z86.010, Personal history of colonic polyps K64.1, Second degree hemorrhoids K64.4, Residual hemorrhoidal skin tags K57.30, Diverticulosis of large intestine without perforation or abscess without bleeding Q43.8, Other specified congenital malformations of intestine CPT copyright 2017 [employer]. All rights reserved. The codes documented in this report are preliminary and upon oil burner review may be revised to meet current compliance requirements. Ramírez Aguilera MD 04/05/2020 7:26:31 AM This report has been signed electronically. Number of Addenda: 0 Note Initiated On: 04/05/2020 6:59 AM
--- NOTE | 2020-04-05 07:29 | EKG12_ITS ---
Test Reason : POST OP Blood Pressure : / mmHG Vent. Rate : 061 BPM Atrial Rate : 061 BPM P-R Int : 000 ms QRS Dur : 090 ms QT Int : 456 ms P-R-T Axes : 000 -09 051 degrees QTc Int : 459 ms Sinus Rhythm with Atrial Bigeminey Inferior infarct , age undetermined , cannot be excluded Abnormal ECG Confirmed by TED POON, STIVEN ([id number]), associate entertainment editor JASON ESPINOSA ([id number]) on 04/08/2020 1:36:08 PM Referred By: Enrique Agarwal Confirmed By:STIVEN JEAN MD
== END 2020-04-05 08:47 | disposition home or self-care (01) ==
LOC: EN 06:13 → AC 06:13
PROVIDERS: PCP Family Medicine; Referring Provider Family Medicine; Visit Provider Surgery
PROC: 0DJD8ZZ Inspection of Lower Intestinal Tract, Via Natural or Artificial Opening Endoscopic (ICD-10-PCS; CPT 45378; principal; 2020-04-05 07:25)
DX: K64.1 Second degree hemorrhoids (principal); K64.4 Residual hemorrhoidal skin tags; Q43.8 Other specified congenital malformations of intestine; K57.30 Diverticulosis of large intestine without perforation or abscess without bleeding; Z86.010 Personal history of colon polyps; Z11.59 Encounter for screening for other viral diseases; E11.9 Type 2 diabetes mellitus without complications; F41.9 Anxiety disorder, unspecified; Z79.84 Long term (current) use of oral hypoglycemic drugs; Z79.899 Other long term (current) drug therapy
CPT/HCPCS: 45378; 82962; 87635; 93005; 99152; 99153; C9803; J7120; U0003

== ENCOUNTER → 2021-02-05 10:09 | Outpatient (CLI) | payer MEDICARE, SELFPAY ==
[2020-04-05 06:33] VITALS: BMI 29.4
--- NOTE | 2021-02-05 10:12 | BI_ITS ---
MAMMOGRAPHY - BILATERAL SCREENING REASON FOR EXAM: Female, 80 years old. Routine annual screening examination. PERTINENT HISTORY: Daughter with breast cancer. Grandmother with breast cancer. Hot with breast cancer. Remote right excisional breast biopsy in prior right ultrasound-guided breast biopsy. TECHNIQUE: Digital bilateral breast david (3D mammographic acquisition) in the CC and MLO projections. 2-D mediolateral oblique (MLO) and craniocaudad (CC) views of both breasts were obtained. CAD: Full Field Digital Mammography with Computer Added Detection was performed. COMPARISON: Comparison is made with prior study dated 10/25/2019 and 04/27/2018. FINDINGS: Breast Composition: The breasts are heterogeneously dense, which may obscure small masses. Stable 1 cm x 1.2 cm well-defined nodule in the upper lateral portion of the left breast. This was demonstrated to be a small cyst on prior sonogram. No other significant abnormalities are identified. There has been no significant change since the prior study. BI/SCRN MAMM (CAD)W/DAVID BILAT IMPRESSION: Stable bilateral screening mammogram. Yearly follow-up mammogram recommended. (A) ASSESSMENT CATEGORY: BIRADS Category 2: Benign. A letter regarding these results will be sent to the patient by the facility within 30 days. Approximately 10% of breast cancers are not detected by mammography. A normal mammogram should not delay biopsy of a clinically suspicious abnormality. [id number] Electronically Signed: Florentino Narvaez MD at 11:23 EDT , Service support ,
--- NOTE | 2021-02-05 10:19 | BD_ITS ---
STUDY: DUAL ENERGY X-RAY ABSORPTIOMETRY / DXA REASON FOR EXAM: Female, 80 years old. POSTMENO TECHNIQUE: Bone Mineral Density (BMD) measurements of lumbar spine and bilateral hips were obtained. COMPARISON: Comparison is made with prior examination dated 05/13/2017. FINDINGS: Lumbar Spine (L1-L4): g/cm2 (1.053) / T-score (0.1) / Z-score (2.8) Findings are suggestive of normal bone density with a low fracture risk. Left Femur Total: g/cm2 (0.959) / T-score (0.1) / Z-score (2.3) Left Femoral Neck: g/cm2 (0.746) / T-score (-0.9) / Z-score (1.4) Right Femur Total: g/cm2 (0.960) / T-score (0.1) / Z-score (2.3) Right Femoral Neck: g/cm2 (0.797) / T-score (-0.5) / Z-score (1.9) The T-Scores on the most recent prior examination were: Lumbar Spine (L1-L4): There has been worsening of bone density since the previous examination. Left Femur Total: which represents a worsening of 3.4%. Right Femur Total: which represents a worsening of 4.4%. BD/Dexa Bone Density Study IMPRESSION: The patient is considered normal as outlined below according to World Richar Organization (WHO) criteria with a low fracture risk. There has been worsening of bone density since the previous examination. Reference Information: The T-score is the number of standard deviations above or below the standard which is normal for young adults at their peak bone mineral density. The World Health Organization (WHO) interprets the T-scores as follows: Above -1 Normal bone density Between -1 and -2.5 Osteopenia Equal to / or below -2.5 Osteoporosis As a practical clinical guideline, osteopenia may be graded as follows: Mild -1 through -1.5 Moderate -1.6 through -2.0 Severe -2.1 through -2.4 The Z-score is the number of standard deviations above or below age-matched controls. A Z-score of less than -1.5 would be considered abnormal. References: 1. NIH Osteoporosis and Related Bone Diseases www osteo.org 2. International Society for Clinical Densitometry www iscd.org 3. National Osteoporosis Foundation www nof.org Electronically Signed: Florentino Narvaez MD at 10:57 EDT , Service support ,
== END ==
PROVIDERS: PCP Family Medicine; Referring Provider Family Medicine; Visit Provider Family Medicine
DX: Z12.31 Encounter for screening mammogram for malignant neoplasm of breast (principal); Z78.0 Asymptomatic menopausal state
CPT/HCPCS: 77063; 77067; 77080

== ENCOUNTER 2021-04-21 09:52 | Day surgery (SDC) | payer MEDICARE, SELFPAY ==
[2021-04-21] VITALS (7 sets, daily range): BP systolic 128–152; BP diastolic 62–69; PULSE 50–59; RESP 16; TEMP 35.6–36.2; O2SAT 96–99; BMI 29.1
--- NOTE | 2021-04-21 00:34 | PCM.HP.BLA ---
History and Physical Date of Admission: 04/21/21 HISTORY OF PRESENT ILLNESS 80 year old woman presents for evaluation for TBSE. She has concerns about lesions on her right medial forehead and central upper forehead by hairline that have increased in size over the last several months. They are erythematous in color. She states it seems the areas have healed and then they become red again with some scabbing and crusting. She denies trauma. She denies fever. She denies recent infection. She denies bleeding. She presents at this time for further evaluation and treatment. Patient has diabetes mellitus. She had a HgbA1c on 12/23/20 and it was 5.7. PAST MEDICAL HISTORY Anxiety Diabetes Diabetes mellitus Family history of breast cancer High blood pressure High triglycerides Neoplasm of skin of forehead Personal history of colonic polyps PAST SURGICAL HISTORY History of appendectomy History of cystoscopy History of oophorectomy History of right breast biopsy history surgery left thumb ALLERGIES Penicillins (PCN) MEDICATIONS atorvastatin bisoprolol-hydrochlorothiazide losartan metformin multivitamin cholecalciferol magnesium FAMILY HISTORY Daughter - Breast cancer Aunt - Breast cancer Mother - Diabetes Brother - Diabetes, Heart disease Father - CVA (cerebral vascular accident) Other - Family history of breast cancer SOCIAL HISTORY Smoking Status: Never smoker alcohol intake: never substance use type: does not use REVIEW OF SYSTEMS General - Denies fever, fatigue, and weight loss. Eyes - Denies cataracts and glaucoma. ENT - Denies nasal congestion and sore throat. Endocrine - Denies excessive thirst and urination. Has family history of breast cancer. Skin - Denies skin cancer. Has enlarging lesions right medial forehead and central upper forehead by hairline. Musculoskeletal - Denies joint pain, joint stiffness, weakness of muscles and joints, back pain, and arthritis. Neuro - Denies headaches. Cardiovascular - Denies chest pain, fatigue, and shortness of breath with exertion. Psych - Denies anxiety and depression. Respiratory - Denies chronic cough and shortness of breath. Gastrointestinal - Denies nausea, vomiting, diarrhea, and constipation. Hematologic - Denies abnormal bruising and bleeding. Genitourinary - Denies hematuria and urinary frequency. PHYSICAL EXAMINATION General - Alert and Oriented. HEENT - PERRL. EOMI. Throat is clear. On the right medial forehead is an erythematous lesion that measures 6 mm. Has irregular borders. Slightly raised in configuration. Some crusting seen. No ulceration. Lesion is nontender. On the central upper forehead by hairline are two erythematous lesions that 14 mm to the right and 8 mm to the left. There is a 1 cm skin bridge in between both lesions. Have irregular borders. Slightly raised in configuration. Some crusting seen. No ulceration. Lesion is nontender. No other suspicious lesions noted. Neck - Supple and nontender. No cervical adenopathy. No suspicious lesions noted. Chest wall - No suspicious lesions noted. Lungs - Clear to auscultation. Heart - Regular rate and rhythm. Abdomen - Soft and nondistended. Extremities - FROM. No axillary adenopathy. Radial pulses are palpable. No suspicious lesions noted. Neuro - CN II-XII grossly intact. Psych - Normal mood and affect. ASSESSMENT 1. 6 mm erythematous lesion right medial forehead. 2. 14 mm and 8 mm erythematous lesions cluster central upper forehead by hairline. 3. Diabetes mellitus. PLAN Patient has enlarging lesions right medial forehead and central upper forehead by hairline. They are erythematous and crusty and are clinically suspicious for at least actinic damage if not an early carcinoma. Recommend excision of these lesions on the forehead and send them to Pathology as a frozen section for analysis to evaluate for carcinoma. If there is actinic damage, will stop the procedure and use Aldara therapy postoperatively. It is a cream that is placed on the lesions daily at night 5 days per week for 6 weeks. Re-evaluation in 2 months. If not clinically resolved, may try another cycle of Aldara or proceed with surgical excision of these lesions with skin flap or skin graft reconstruction. If carcinoma is present, then further excision will be done with skin flap or skin graft reconstruction. Surgery will be done on an outpatient basis under local anesthesia and IV sedation. Patient was informed of the risks and complications of the procedure including alternatives to surgery. These were discussed with the patient personally. Patient voices understanding and wishes to proceed. Some of the risks and complications were included in a form from the [employer] [employer]. Patient has diabetes mellitus and her last HgbA1c on 12/23/20 was 5.7. Before proceeding with any elective surgery, the HgbA1c needs to be less than 8. We discussed the current risks associated with COVID-19. While it is understood that there is a community spread of COVID-19, the risk of arthur COVID-19 while at [facility] ([facility]) is very low; however, the risk cannot be completely mitigated because of the community spread of the disease. We discussed in detail the risk of exposure to and/or potential harm posed by the COVID-19 virus with having a surgery/procedure at this time versus the risk of delaying the surgery/procedure. It is not possible to know either the risk of delaying the surgery or procedure or chance of getting an infection with perfect accuracy, but a joint decision was made to proceed at this time with the scheduled surgery/procedure as indicated on the consent form. Patient was notified that we will need to comply with any screening or testing [facility] wishes to perform or that surgery may be delayed for any positive results. Procedure Criteria Procedure Type: Elective COVID Risk Discussion: The surgeon/proceduralist and patient have discussed in detail the risk of exposure to and/or potential harm posed by the COVID-19 virus with having a surgery/procedure at this time versus the risk of delaying the surgery/procedure. It is not possible to know either the risk of delaying the surgery or procedure or chance of getting an infection with perfect accuracy, but a joint decision was made between the patient and the surgeon/proceduralist to proceed at this time with the scheduled surgery/procedure as indicated on the consent form.
[2021-04-21] MEDS: Lactated Ringers 1,000 ML 15 ML IV (10:35)
[2021-04-21 11:15] LABS: Bedside Glucose 121 mg/dL (70-110)
[2021-04-21] MEDS: Lidocaine 1% /Epi 1:100 (20ml) 20 ML Vial (12:29)
--- NOTE | 2021-04-21 12:35 | LES_PTH ---
PATIENT: [place]ICK [place] [facility] [id number] AGE/SX: 80/F ROOM: RE04/21/[address]: Dr. Ramon Vargas MD : 1940 BED: DIS: 04/21/2021 SPEC #: [id number] RECD: 04/21/21 12:39 STATUS: AMY RERajwinder #: [id number] LEX: 04/21/21 12:[address]: Ramon Vargas DEPT: SURGICAL PATHOLOGY RECD BY: Avtar Senior ENTERED: 04/21/21 14:20 SP TYPE: Lesion OTHR DR: Dr. Enrique Agarwal MD Tissues: A - Skin of forehead B - Skin of forehead C - Skin of forehead Procedures: Frozen Section (charge) Surgery Specimen Level IV HEADER OPERATION: Excision lesions, right medial forehead and central forehead PRE-OP DIAGNOSIS: 6 mm erythematous lesion, right medial forehead, 14mm and 8mm erythematous lesion fluster central upper forehead by hairline TISSUE SUBMITTED: A - Lesion right medial forehead, FS AT 1239, B - Lesion cluster central forehead by hairline, right, FS at 1239, C - Lesion cluster central forehead by hairline, left, FS at 1241 FROZEN SECTION DIAGNOSIS A. Lesion right medial forehead, shave biopsy: Actinic keratosis Negative for carcinoma B. Lesion, right central upper forehead, shave biopsy: Actinic keratosis. Negative for carcinoma C. Lesion, left central forehead by hairline, shave biopsy: Actinic keratosis. Negative for carcinoma SJ:cassandra 04/21/21 MICROSCOPIC DIAGNOSIS A. Lesion right medial forehead, shave biopsy: Actinic keratosis and moderate to severe atypia. Negative for carcinoma. See comment. B. 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 C. Lesion central forehead by hairline, shave biopsy: Inflamed actinic keratosis with moderate to severe atypia. ZEB:angie 04/22/2021 COMMENT A. Focal area of actinic keratosis changes with severe atypia are also present at the deep margin of the specimen. Clinical correlation and appropriate follow up are necessary. Complete excision of the lesions (A & B) is suggested if clinically indicated. MICROSCOPIC DESCRIPTION Slides are reviewed. GROSS DESCRIPTION A - Received fresh for frozen section diagnosis labeled with the patient's name is a specimen designated lesion right medial forehead. The specimen consists of a piece of perez-white skin measuring 1 x 0.5 x 0.1 cm. The specimen is bisected and submitted entirely for frozen section diagnosis in one cassette. B - Received fresh for frozen section diagnosis labeled with the patient's name is a specimen designated lesion right cluster right central upper forehead by hairline. The specimen consists of a piece of perez-white skin measuring 1.2 x 0.7 x 0.1 cm. The specimen is serially sectioned and submitted entirely for frozen section diagnosis in one cassette. C - Received fresh for frozen section diagnosis labeled with the patient's name is a specimen designated lesion cluster left central forehead by hairline. The specimen consists of a piece of perez-white skin measuring 1 x 0.9 x 0.1 cm. The specimen is bisected and submitted entirely for frozen section diagnosis in one cassette. / SJ:rg 04/21/21 TC:0 CPT: 82694 x3, 44640 x3
[2021-04-21] MEDS: Silver Nitrate (BKC) 1 EACH (12:59)
[2021-04-21] MEDS: Mupirocin Ointment 22gm Tube 1 APPLIC (13:01)
--- NOTE | 2021-04-21 13:10 | OP.PCM_ITS ---
Problems Associated Problem List Diagnoses (1) Actinic keratoses: Report of Operation Date of Procedure: 04/21/21 Pre-Operative Diagnosis: 1. 6 mm erythematous lesion right medial forehead. 2. 14 mm erythematous lesions cluster central upper forehead by hairline, right. 3. 8 mm erythematous lesions cluster central upper forehead by hairline, left. 3. Diabetes mellitus. Post-Operative Diagnosis: 1. 6 mm actinic keratosis right medial forehead. 2. 14 mm actinic keratosis central upper forehead by hairline cluster, right. 3. 8 mm actinic keratosis central upper forehead by hairline cluster, left. 3. Diabetes mellitus. Surgery/Procedure Performed:: 1. Intradermal excision 6 mm actinic keratosis right medial forehead. 2. Intradermal excision 14 mm actinic keratosis central upper forehead by hairline cluster, right. 3. Intradermal excision 8 mm actinic keratosis central upper forehead by hairline cluster, left. Description of Surgical Findings:: 80 year old woman presents for evaluation for TBSE. She has concerns about lesions on her right medial forehead and central upper forehead by hairline that have increased in size over the last several months. They are erythematous in color. She states it seems the areas have healed and then they become red again with some scabbing and crusting. She denies trauma. She denies fever. She denies recent infection. She denies bleeding. Patient has diabetes mellitus. She had a HgbA1c on 12/23/20 and it was 5.7. Patient was informed of the risks and complications of the procedure including alternatives to surgery. These were discussed with the patient personally. Patient voices understanding and wishes to proceed. Some of the risks and complications were included in a form from the [employer] [facility] [employer]. Frozen section lesion right medial forehead - actinic keratosis and no carcinoma seen. Frozen section lesion central upper forehead by hairline cluster, right - actinic keratosis and no carcinoma seen. Frozen section lesion central upper forehead by hairline cluster, left - actinic keratosis and no carcinoma seen. Surgeon: Ramon Vargas Type of Anesthesia: Local MAC (xylocaine with epinephrine and IV sedation.) Specimen's removed: 1. Erythematous lesion right medial forehead to Pathology as a frozen section. 2. Erythematous lesion central upper forehead by hairline cluster, right, to Pathology as a frozen section. 3. Erythematous lesion central upper forehead by hairline thea, left, to Pathology as a frozen section. Drains: None. Estimated Blood Loss (mL): 2. Description of Procedure: Patient was taken to OR in supine position and was given IV sedation. The forehead was prepped and draped in the usual fashion. SCD's were placed for DVT prophylaxis. Perioperative antibiotics were given intravenously. The lesions on the forehead (right medial forehead, central upper forehead by hairline cluster,right and left) were infiltrated with xylocaine and epinephrine. After waiting 5 minutes for the anesthetic to take effect, I proceeded with intradermal excision of these lesions X3 and sent them to Pathology as a frozen section for analysis to rule out carcinoma. Frozen section showed all three lesions (right medial forehead, central upper forehead by hairline cluster,right and left) were actinic keratoses and no carcinoma seen. Hemostasis was obtained with gauze compression and silver nitrate chemical cauterization. Antibiotic ointment was applied. Patient tolerated the procedure well and was sent to PACU in satisfactory condition. Patient will be sent home on antibiotics. She states she will use non-narcotic medication over the counter such as Tylenol or Ibuprofen. Patient will followup in a week for a wound check and for discussion of the pathology re port. When the wounds have healed, usually 2-4 weeks, will then start Aldara therapy. She will apply to the lesions daily at night 5 days per week for 6 weeks. Then she will have a re-evaluation in 2 months. Grafts/Implants Used: None. Complications None. Admit VTE Documentation VTE Present on Admission: No VTE Pharm Prophylaxis ordered?: No Addendum Addendum: Surgery Charges CPT - 00941 ICD-10 - L57.0 21525 L57.0 14991 L57.0
--- NOTE | 2021-04-21 14:15 | SUR.PHASEII ---
pt's daughter is at bedside. she wonders about putting an eye drop that she uses into pt's r. eye for the discomfort. rn has advised to wait to see what dr. monteiro recommends. md is currently in surgery and will do dc instructions, rx's, etc. when he is done. daughter voices understanding.
--- NOTE | 2021-04-21 14:26 | SUR.PHASEII ---
dr. monteiro out of surgery. rn discussed situation with pt's eye. he states pt. may use her daughter's eye drop until otc saline drops can be purchased for pt. to use at home.
--- NOTE | 2021-04-21 14:43 | PCM.DC ---
Discharge Instructions Diet Discharge Diet: Carb Control Diet and - (encourage nutritional supplementation with protein to help the healing process.) Activity Discharge Activity: May Drive (when not taking pain meds.), May Shower (in two days.) and - (keep head elevated. no heavy lifting.) May shower in (days): 2 May resume sexual activity in: No Restrictions Weight Bearing Status: Weight bearing as tolerated Lifting Restrictions: 20 lbs. Keep extremity elevated above heart level: - (elevate head.) Dressing / Incision Call your doctor if your incision/area has: Continuous Slow Oozing, Sudden Increased Bleeding, Increased Pain/ Swelling, Increased Redness, Foul Smelling Discharge and Swelling at the incision site Call your doctor if you observe: Fever of 101 or Higher, Coldness, Increased Pain, Shortness of breath, Calf discomfort and Uncontrolled pain Suture Line Care: - (apply antibiotic ointment to forehead wounds x3 daily. Wipe off previous days ointment to minimize buildup.) Cleanse incision/area with: Soap & Water and - (may get wounds wet in the shower in two days.) Follow Up Care Please Follow Up With: Ramon Vargas MD When: one week. call [phone] for appt. Test Results: Test results from this visit will be discussed in further detail at your follow-up appointment, if applicable. Discharge Plan Admission Primary Reason for Your Visit: excision lesions forehead Attending Provider: Ramon Vargas Primary Care Provider: Enrique Agarwal Discharge Orders/Prescriptions Prescriptions: New clindamycin HCl [Cleocin HCl] 300 mg capsule 300 mg PO TID Qty: 9 RF: 0 L.acidoph,saliva-B.bif-S.therm [Acidophilus Probiotic Blend] 175 mg capsule 1 cap PO DAILY Qty: 10 RF: 0 Continued cholecalciferol (vitamin D3) 25 mcg (1,000 unit) capsule 50 mcg PO DAILY RF: 0 magnesium 250 mg tablet 250 mg PO DAILY RF: 0 multivitamin 1 TABLET tablet 1 tab PO DAILY RF: 0 metformin 500 MG tablet 500 mg PO BIDCM RF: 0 atorvastatin 10 MG tablet 10 mg PO QHS RF: 0 losartan 100 MG tablet 100 mg PO DAILY RF: 0 bisoprolol fumarate 10 mg tablet 10 mg PO DAILY RF: 0 Referrals / Follow Up: Enrique Agarwal MD [Primary Care Provider] - Disposition Disposition (needs filled in before D/C Order can be placed): Home, Self Care
== END 2021-04-21 15:42 | disposition home or self-care (01) ==
LOC: SDC 09:53 → AC 09:55
PROVIDERS: PCP Family Medicine; Visit Provider Surgery
PROC: (CPT 11313; principal; 2021-04-21 11:35)
DX: L57.0 Actinic keratosis (principal); I10 Essential (primary) hypertension; E11.9 Type 2 diabetes mellitus without complications; F41.9 Anxiety disorder, unspecified; E78.1 Pure hyperglyceridemia; Z86.010 Personal history of colon polyps; Z79.84 Long term (current) use of oral hypoglycemic drugs; Z79.899 Other long term (current) drug therapy
CPT/HCPCS: 00300; 11313; 82962; 88305; 88331; J7120

== ENCOUNTER 2021-07-23 14:07 | Observation (INO) | payer MEDICARE, SELFPAY ==
[2021-07-23] VITALS (12 sets, daily range): BP systolic 119–166; BP diastolic 55–78; PULSE 48–75; RESP 14–18; TEMP 36.1–36.6; O2SAT 92–99; BMI 28.6; BMI 29.8
--- NOTE | 2021-07-23 | LES_PTH ---
PATIENT: DOC DICK LOC: [facility] U#:[id number] AGE/SX: 80/F [place]OM: [facility] [place]07/23/[address]: Dr. Ramon Vargas MD : 1940 BED: 1 DIS: 07/24/2021 SPEC #: [id number] RECD: 07/23/21 13:38 STATUS: AMY SYEDRajwinder #: [id number] LEX: 07/23/21 00:[address]: Ramon Vargas DEPT: SURGICAL PATHOLOGY RECD BY: Jacob Arthur ENTERED: 07/24/21 11:57 SP TYPE: Lesion OTHR DR: Dr. Enrique Agarwal MD Tissues: A - Skin of forehead B - Skin of forehead Procedures: Surgery Specimen Level IV HEADER OPERATION: Excision actinic keratoses with atypia and squamous cell carcinoma PRE-OP DIAGNOSIS: 6 mm erythematous lesion right medial forehead; 14 mm and 8 mm erythematous lesions cluster central upper forehead by hairline TISSUE SUBMITTED: A - 6 mm erythematous lesion right medial forehead, actinic keratoses with atypia and squamous cell carcinoma in situ, suture lira 12 o?clock, B - 14 mm and 8 mm erythematous lesions cluster central upper forehead by hairline, actinic keratoses with atypia and squamous cell carcinoma in situ, suture lira 12 o?clock MICROSCOPIC DIAGNOSIS A. Lesion right medial forehead, excisional biopsy: Actinic keratosis with focal moderate to severe atypia. Dermal fibrosis, consistent with scar. Negative for malignancy. See comment. B. Erythematous lesion cluster central forehead by hairline: Actinic keratosis with focal severe atypia. Negative for malignancy. Solar elastosis. Dermal fibrosis, consistent with scar. See comment. SJ:rg 07/25/2021 COMMENT A & B. Resection margins are free of moderate to severe actinic keratosis changes. Please make reference to previous specimen ([id number]) lesion right medial forehead, shave biopsy with diagnosis of actinic keratosis and moderate to severe atypia and lesion right central forehead by hairline, shave biopsy with diagnosis of squamous cell carcinoma in situ and lesion central forehead by hairline, shave biopsy with diagnosis of inflamed actinic keratosis with moderate to severe atypia. Case has been reviewed in consultation with Dr. Marin who concurs with the above diagnosis. IDC:AM MICROSCOPIC DESCRIPTION Slides are reviewed. GROSS DESCRIPTION A - Received in fixative is one container labeled with the patient's name and designated 6 mm erythematous lesion right medial forehead, actinic keratoses with atypia and squamous cell carcinoma in situ, suture at 12 o'clock. The specimen consists of a piece of perez-white skin measuring 3.7 x 2 cm and up to 0.5 cm in thickness. The specimen is oriented by a suture at 12 o?clock. The specimen is inked as follows: 12 to 3 o'clock - black, 3 to 6 o'clock - blue, 6 to 9 o'clock - green and 9 to 12 o'clock - yellow. The specimen is serially sectioned and submitted entirely in four cassettes. B - Received in fixative is one container labeled with the patient's name and designated 14 mm and 8 mm erythematous lesions cluster central upper forehead by hairline, actinic keratoses with atypia and squamous cell carcinoma in situ, suture lira 12 o'clock. The specimen consists of a round piece of perez-white skin measuring 1.4 x 1.2 cm and up to 0.2 cm in thickness. The specimen is oriented by a suture at 12 o?clock. The specimen is inked as follows: 12 to 3 o'clock - black, 3 to 6 o'clock - blue, 6 to 9 o'clock - green and 9 to 12 o'clock - yellow. The specimen is serially sectioned and submitted entirely in one cassette. / SJ:angie 07/24/2021 TC:5 CPT: 49391 x2
--- NOTE | 2021-07-23 07:50 | HP.PCM_ITS ---
History and Physical HISTORY OF PRESENT ILLNESS 80 year old woman presents for evaluation for TBSE. She has concerns about lesions on her right medial forehead and central upper forehead by hairline that have increased in size over the last several months. They are erythematous in color. She states it seems the areas have healed and then they become red again with some scabbing and crusting. She denies trauma. She denies fever. She denies recent infection. She denies bleeding. Patient has diabetes mellitus. She had a HgbA1c on 12/23/20 and it was 5.7. She went to surgery on 04/21/21 where she underwent intradermal excision 6 mm actinic keratosis right medial forehead and intradermal excision 14 mm actinic keratosis central upper forehead by hairline cluster, right and intradermal excision 8 mm actinic keratosis central upper forehead by hairline cluster, left. Frozen section showed actinic keratosis. Permanent Pathology showed right medial forehead lesion was actinic keratosis and moderate to severe atypia. The right central upper forehead lesion by hairline showed squamous cell carcinoma in situ and actinic keratosis with severe atypia. The left central upper forehead lesion by hairline showed actinic keratosis and moderate to severe atypia. Further surgery was recommended with excision of these three lesions with a margin followed by skin grafting or skin flap reconstruction. Her repeat HgbA1c on 07/17/21 was 6.0. PAST MEDICAL HISTORY Anxiety Diabetes Diabetes mellitus Family history of breast cancer High blood pressure High triglycerides Neoplasm of skin of forehead Personal history of colonic polyps PAST SURGICAL HISTORY History of appendectomy History of cystoscopy History of oophorectomy History of right breast biopsy history surgery left thumb intradermal excision 6 mm actinic keratosis right medial forehead and intradermal excision 14 mm actinic keratosis central upper forehead by hairline cluster, right and intradermal excision 8 mm actinic keratosis central upper forehead by hairline cluster, left - 04/21/21 ALLERGIES Penicillins (PCN) MEDICATIONS atorvastatin bisoprolol-hydrochlorothiazide losartan metformin multivitamin cholecalciferol magnesium FAMILY HISTORY Daughter - Breast cancer Aunt - Breast cancer Mother - Diabetes Brother - Diabetes, Heart disease Father - CVA (cerebral vascular accident) Other - Family history of breast cancer SOCIAL HISTORY Smoking Status: Never smoker alcohol intake: never substance use type: does not use REVIEW OF SYSTEMS General - Denies fever, fatigue, and weight loss. Eyes - Denies cataracts and glaucoma. ENT - Denies nasal congestion and sore throat. Endocrine - Denies excessive thirst and urination. Has family history of breast cancer. Skin - Denies skin cancer. Has enlarging lesions right medial forehead and central upper forehead by hairline. Musculoskeletal - Denies joint pain, joint stiffness, weakness of muscles and joints, back pain, and arthritis. Neuro - Denies headaches. Cardiovascular - Denies chest pain, fatigue, and shortness of breath with exertion. Psych - Denies anxiety and depression. Respiratory - Denies chronic cough and shortness of breath. Gastrointestinal - Denies nausea, vomiting, diarrhea, and constipation. Hematologic - Denies abnormal bruising and bleeding. Genitourinary - Denies hematuria and urinary frequency. PHYSICAL EXAMINATION General - Alert and Oriented. HEENT - PERRL. EOMI. Throat is clear. On the right medial forehead, right central upper forehead by hairline cluster, and left central upper forehead by hairline cluster were healing wounds from recent biopsies in March,. The right medial forehead lesion measures 6 mm. The right central upper forehead by hairline cluster lesion measures 1.4 cm. The left central upper forehead by hairline cluster lesion measures 8 mm. Neck - Supple and nontender. No cervical adenopathy. No suspicious lesions noted. Chest wall - No suspicious lesions noted. Lungs - Clear to auscultation. Heart - Regular rate and rhythm. Abdomen - Soft and nondistended. Extremities - FROM. No axillary adenopathy. Radial pulses are palpable. No suspicious lesions noted. Neuro - CN II-XII grossly intact. Psych - Normal mood and affect. ASSESSMENT 1. 6 mm actinic keratosis and moderate to severe atypia right medial forehead. 2. 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 3. 8 mm actinic keratosis and moderate to severe atypia left central upper forehead by hairline. 4. Diabetes mellitus. 5. HgbA1c 6.0 on 07/17/21. PLAN Patient has actinic keratoses with severe atypia along with a squamous cell carcinoma in situ in 3 forehead lesions. Recommend excision of these lesions with a 5 mm margin in all directions. Reconstruction will be with skin graft, possible skin flap. Will send the specimens extra margin to Pathology for analysis to rule out carcinoma at the margins. Surgery will be done under local anesthesia and IV sedation with a surgical observation overnight stay in the hospital. Patient was informed of the risks and complications of the procedure including alternatives to surgery. These were discussed with the patient personally. Patient voices understanding and wishes to proceed. Some of the risks and complications were included in a form from the [employer]. Patient has diabetes mellitus and her last HgbA1c on 07/17/21 was 6.0. Before proceeding with any elective surgery, the HgbA1c needs to be less than 8. We discussed the current risks associated with COVID-19. While it is understood that there is a community spread of COVID-19, the risk of arthur COVID-19 while at [facility] ([facility]) is very low; however, the risk cannot be completely mitigated because of the community spread of the disease. We discussed in detail the risk of exposure to and/or potential harm posed by the COVID-19 virus with having a surgery/procedure at this time versus the risk of delaying the surgery/procedure. It is not possible to know either the risk of delaying the surgery or procedure or chance of getting an infection with perfect accuracy, but a joint decision was made to proceed at this time with the scheduled surgery/procedure as indicated on the consent form. Patient was notified that we will need to comply with any screening or testing [facility] wishes to perform or that surgery may be delayed for any positive results. Procedure Criteria Procedure Type: Elective COVID Risk Discussion: The surgeon/proceduralist and patient have discussed in detail the risk of exposure to and/or potential harm posed by the COVID-19 virus with having a surgery/procedure at this time versus the risk of delaying the surgery/procedure. It is not possible to know either the risk of delaying the surgery or procedure or chance of getting an infection with perfect accuracy, but a joint decision was made between the patient and the surgeon/proceduralist to proceed at this time with the scheduled surgery/procedure as indicated on the consent form.
[2021-07-23] MEDS: Lactated Ringers 1,000 ML 15 ML IV ×2 (08:30→13:40)
[2021-07-23 08:51] LABS: Bedside Glucose 142 mg/dL (70-110)
[2021-07-23] MEDS: Lidocaine 1% /Epi 1:100 (50ml) 50 ML VIAL (11:29)
[2021-07-23] MEDS: Mupirocin Ointment 22gm Tube 1 APPLIC (13:13)
--- NOTE | 2021-07-23 13:18 | OP.PCM_ITS ---
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 6 mm actinic keratosis and moderate to severe atypia right medial forehead. 2. 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 3. 8 mm actinic keratosis and moderate to severe atypia left central upper forehead by hairline. 4. Diabetes mellitus. 5. HgbA1c is 6.0 from 07/17/21. Post-Operative Diagnosis: Same. Surgery/Procedure Performed:: 1. Excision 6 mm actinic keratosis and moderate to severe atypia right medial forehead with transposition skin flap reconstruction (10.56 cm2). 2. 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 3. Excision 8 mm actinic keratosis and moderate to severe atypia left central upper forehead by hairline cluster with FTSG reconstruction from the right neck (8 cm2 total). Description of Surgical Findings:: 80 year old woman presents for evaluation for TBSE. She has concerns about lesions on her right medial forehead and [facility] have increased in size over the last several months. They are erythematous in color. She states it seems the areas have healed and then they become red again with some scabbing and crusting. She denies trauma. She denies fever. She denies recent infection. She denies bleeding. Patient has diabetes mellitus. She had a HgbA1c on 12/23/20 and it was 5.7. She went to surgery on 04/21/21 where she underwent intradermal excision 6 mm actinic keratosis right medial forehead and intradermal excision 14 mm actinic keratosis central upper forehead by hairline cluster, right and intradermal excision 8 mm actinic keratosis central upper forehead by hairline cluster, left. Frozen section showed actinic keratosis. Permanent Pathology showed right medial forehead lesion was actinic keratosis and moderate to severe atypia. The right central upper forehead lesion by hairline showed squamous cell carcinoma in situ and actinic keratosis with severe atypia. The left central upper forehead lesion by hairline showed actinic keratosis and moderate to severe atypia. Further surgery was recommended with excision of these three lesions with a margin followed by skin grafting or skin flap reconstruction. Patient was informed of the risks and complications of the procedure including alternatives to surgery. These were discussed with the patient personally. Patient voices understanding and wishes to proceed. Some of the risks and complications were included in a form from the [employer]. Size of skin graft central upper forehead by hairline cluster - 4 x 2 cm. Surgeon: Ramon Vargas lithographic press operator: Colin Patel Type of Anesthesia: Local MAC (xylocaine with epinephrine and IV sedation.) Specimen's removed: 1. Actinic keratosis and moderate to severe atypia right medial forehead to Pathology. 2. Squamous cell carcinoma in situ and actinic keratosis with severe atypia right central upper forehead by hairline cluster and actinic keratosis and moderate to severe atypia left central upper forehead by hairline cluster to Pathology. Drains: None. Estimated Blood Loss (mL): 50. Description of Procedure: Patient was taken to OR in supine position and was given IV sedation. The frontal scalp and forehead and bilateral neck areas were prepped and draped in the usual fashion. SCD's were placed for DVT prophylaxis. Perioperative antibiotics were given intravenously. The lesions on the right medial forehead, right central upper forehead by hairline cluster, and left central upper forehead by hairline cluster were infiltrated with xylocaine and epinephrine. I also infiltrated the donor site area on the right neck. After waiting 5 minutes for the anesthetic to take effect, I excised all three lesions with a 5 mm margin in all directions. The two lesions forming the central upper forehead by hairline cluster were excised as one specimen that has two lesions present. This gave us a 1.6 cm excision for the right medial forehead lesion, and a 2.4 cm excision for the right central upper forehead by hairline cluster lesion, and a 1.8 cm excision for the left central upper forehead by hairline cluster lesion. The size of the lesions cluster after excision was 4 x 2 cm which is the area to be skin grafted. The right medial forehead lesion is located close to the central aspect of the forehead. A central forehead transposition flap was designed inferiorly to close the right medial forehead defect. The flap marking was infiltrated with xylocaine with epinephrine. Incisions were made and the central forehead flap was elevated down to the muscle and easily transposed into the defect with minimal tension and minimal distortion. Hemostasis was obtained with electrocautery. The flap was transposed into the right medial forehead d efect and secured with a layered closure with 5-0 Monocryl interrupted sutures for the deep dermis and subcutaneous tissue. The skin was approximated with 5-0 Prolene simple interrupted sutures. The size of the defect and the size of the flap needed to close the defect was 10.56 cm2. Antibiotic ointment was applied to the suture line followed 2x2 gauze compression dressing. I then obtained the FTSG from the right neck. [] was infiltrated with xylocaine with epinephrine. I made an elliptical incision down into the subcutaneous tissue. The subcutaneous tissue was removed from the undersurface of the dermis thus making it a full thickness skin graft. The skin graft was placed in saline. The donor incision was irrigated with saline. Hemostasis was obtained with electrocautery. The donor incision was then closed in multiple layers using 5-0 Monocryl for the deep dermis and subcutaneous tissue. The skin was approximated with 5-0 Prolene simple interrupted sutures. Antibiotic ointment was applied followed by an Op-site dressing. The FTSG was then placed on the upper forehead defect and secured with 4-0 Nylon tie over stent suture dressing. Patient tolerated the procedure well and was sent to PACU in satisfactory condition. Patient will be sent upstairs for continued postop care with a surgical observation overnight stay in the hospital. Grafts/Implants Used: None. Complications None. Admit VTE Documentation VTE Present on Admission: No VTE Mechan Device Prophylaxis: SCD's VTE Pharm Prophylaxis ordered?: Yes Addendum Addendum: Surgery Charges CPT - 93054 ICD-10 - L57.0, D04.30, E11.9, R73.09 50652 D04.30, L57.0, E11.9, R73.09 60532 L57.0, D04.30, E11.9, R73.09 93325 D04.30, L57.0, E11.9, R73.09
[2021-07-23 17:16] LABS: Bedside Glucose 131 mg/dL (74-106)
[2021-07-23] MEDS: Acetaminophen 500 MG Tablet 1000 MG PO (18:06)
[2021-07-23] MEDS: metFORMIN HCl 500 MG Tablet PO (18:06)
[2021-07-23] MEDS: Lactated Ringers 1,000 ML 60 ML IV (18:07)
[2021-07-23] MEDS: Ondansetron ODT 4 MG Tablet PO (20:11)
[2021-07-23] MEDS: Atorvastatin Calcium 10 MG Tablet PO (22:01)
[2021-07-23] MEDS: Cholecalciferol (VIT D3) 25 MCG TABLET (1,000 UNITS) PO (22:01)
[2021-07-23] MEDS: Docusate Sodium 100 MG Capsule PO (22:01)
[2021-07-23 22:11] LABS: Bedside Glucose 154 mg/dL (74-106)
[2021-07-24] MEDS: Acetaminophen 500 MG Tablet 1000 MG PO ×3 (00:11→12:06)
[2021-07-24 00:57] LABS: Anion Gap 5 (5-15); BUN 13 mg/dL (7-18); BUN/Creat Ratio 16.4 RATIO (10-20); Calcium,Total 9.5 mg/dL (8.5-10.1); Chloride 103 mmol/L (98-107); Creatinine, Serum 0.79 mg/dL (0.55-1.02); EST Glomerular Filtration Rate 74 mL/min (>60); Est Glom Filt Rate - Afr Amer 89 mL/min (>60); Glucose 146 mg/dL (74-106); Potassium 4.3 mmol/L (3.5-5.1); Sodium Level 137 mmol/L (136-145)
[2021-07-24 02:28] VITALS: BP 160/73; PULSE 63; RESP 18; TEMP 36.7; O2SAT 95
[2021-07-24 05:38] LABS: Absolute Lymphocyte Count 2.24 X10^3/uL (0.83-4.51); Basophil# 0.04 X10^3/uL; Basophil% 0.3 % (0-1); Eosinophil# 0.06 X10^3/uL; Eosinophils% 0.5 % (0-5); Hematocrit 36.4 % (37-47); Hemoglobin 12.6 g/dL (12.0-15.0); Lymphocyte # 2.24 X10^3/ul (0.83-4.51); Lymphocyte % 18.6 % (19-41); Mean Corp Hgb Conc 34.6 g/dL (32-36); Mean Corpuscular Hgb 30.2 pg (27.0-32.0); Mean Corpuscular Volume 87.3 fL (81-99); Mean Platelet Vol. 9.6 fl (6.2-12.0); Monocyte# 0.74 X10^3/uL; Monocyte% 6.1 % (0-10); NRBC Flagged by Analyzer 0 % (0-5); Neutrophil # 8.96 X10^3/uL (2.7-7.7); Neutrophil % 74.3 % (47-70); Platelet Count 228 K/mm3 (150-450); RBC Distribution Width SD 38.5 fl (35.1-43.9); Red Blood Count 4.17 M/mm3 (4.2-5.4); White Blood Count 12.1 K/mm3 (4.4-11.0)
[2021-07-24 05:51] LABS: Anion Gap 4 (5-15); BUN 12 mg/dL (7-18); BUN/Creat Ratio 15.4 RATIO (10-20); Calcium,Total 8.9 mg/dL (8.5-10.1); Chloride 104 mmol/L (98-107); Creatinine, Serum 0.78 mg/dL (0.55-1.02); EST Glomerular Filtration Rate 75 mL/min (>60); Est Glom Filt Rate - Afr Amer 91 mL/min (>60); Glucose 122 mg/dL (74-106); Potassium 4.2 mmol/L (3.5-5.1); Sodium Level 137 mmol/L (136-145)
[2021-07-24 06:41] LABS: Bedside Glucose 109 mg/dL (74-106)
[2021-07-24 07:32] VITALS: O2SAT 93
[2021-07-24 07:36] VITALS: BP 133/63; PULSE 61; RESP 18; TEMP 36.4; O2SAT 98
[2021-07-24] MEDS: metFORMIN HCl 500 MG Tablet PO (07:40)
[2021-07-24] MEDS: Cholecalciferol (VIT D3) 25 MCG TABLET (1,000 UNITS) PO (07:41)
[2021-07-24] MEDS: Losartan Potassium 100 MG Tablet PO (07:41)
[2021-07-24] MEDS: Docusate Sodium 100 MG Capsule PO (07:41)
[2021-07-24] MEDS: Enoxaparin 40 MG/0.4 ML Syringe SC (07:41)
[2021-07-24] MEDS: Magnesium Chloride 64 MG Delay Rel.Tablet 128 MG PO (07:41)
[2021-07-24 12:05] VITALS: BP 143/59; PULSE 58; RESP 18; TEMP 37; O2SAT 95
--- NOTE | 2021-07-24 12:20 | PCM.DC ---
Discharge Instructions Diet Discharge Diet: Carb Control Diet Activity Discharge Activity: May Not Drive (until no longer taking pain medication) and May Shower (from the neck down. Do not get forehead dressing wet) May resume sexual activity in: 1-2 weeks Lifting Restrictions: 15 lb weight lifting restrict Additional Activity Instructions:: Keep head elevated. May sleep on 1-2 extra pillows at night for head elevation Dressing / Incision Call your doctor if your incision/area has: Continuous Slow Oozing, Sudden Increased Bleeding, Increased Pain/ Swelling, Increased Redness and Foul Smelling Discharge Call your doctor if you observe: Fever of 101 or Higher, Inability to have a bowel movement, Shortness of breath, Dizziness, Chest pain, Calf discomfort and Uncontrolled pain Suture Line Care: Avoid Pinching/Bending Change Dressing in: 2 days Remove Dressing in: 2 days (May remove forehead and right neck dressing in 1-2 days, may recover if more comfortable having incisions covered.) Cleanse incision/area with: Soap & Water Additional Dressing/Incision Instructions:: Do not get the yellow compression dressing wet. May gently wash the forehead and right neck incisions with soap and water and place a thin layer of antibiotic ointment over incisions. Will remove the compression dressing on Wednesday. Follow Up Care Please Follow Up With: Dr. Vargas/Teresa When: Wednesday07/28/21 at 4 pm. If this is not a good time call [phone] to reschedule. Test Results: Test results from this visit will be discussed in further detail at your follow-up appointment, if applicable. Discharge Plan Admission Admit Date/Time: 07/23/21 14:07 Attending Provider: Ramon Vargas Primary Care Provider: Enrique Agarwal Discharge Orders/Prescriptions Prescriptions: New clindamycin HCl 300 mg capsule 300 mg PO TID 5 Days Qty: 15 RF: 0 diazepam [Valium] 2 mg tablet 2 mg PO BID PRN (Reason: muscle spasm) 7 Days Qty: 14 RF: 0 hydrocodone-acetaminophen 5-325 mg tablet 1 tab PO Q6H PRN (Reason: pain (scale score 7-10)) 7 Days Qty: 20 RF: 0 Lactobacillus acidophilus 500 million cell capsule 500 mmu cells PO BID 15 Days Qty: 30 RF: 0 docusate sodium [Colace] 100 mg capsule 100 mg PO DAILY 30 Days Qty: 30 RF: 0 Continued cholecalciferol (vitamin D3) 25 mcg (1,000 unit) capsule 25 mcg PO BID RF: 0 magnesium 250 mg tablet 250 mg PO DAILY RF: 0 multivitamin 1 TABLET tablet 1 tab PO DAILY RF: 0 metformin 500 MG tablet 500 mg PO BIDCM RF: 0 atorvastatin 10 MG tablet 10 mg PO QHS RF: 0 losartan 100 MG tablet 100 mg PO DAILY RF: 0 bisoprolol fumarate 10 mg tablet 10 mg PO DAILY RF: 0 Referrals / Follow Up: Enrique Agarwal MD [Primary Care Provider] - Disposition Disposition (needs filled in before D/C Order can be placed): Home, Self Care
--- NOTE | 2021-07-24 12:37 | PN.SURG_ITS ---
Subjective Subjective Postop #1 Patient sitting up in chair. She states her pain is well controlled. Objective Data Objective Data Vital Signs: Vital Signs Temp Pulse Resp BP Pulse Ox 98.6 F 58 L 18 143/59 H 95 07/24/21 12:05 07/24/21 12:05 07/24/21 12:05 07/24/21 12:05 07/24/21 12:05 Oxygen Flow Rate (L/min) 2 Oxygen Delivery Method Room Air Weight: 163 lb Body Mass Index (BMI) 29.8 Intake & Output: Intake and Output for Last 24 Hours 07/22/21 07/23/21 07/24/21 23:59 23:59 23:59 Intake Total 1530.25 / 1530.25 1394 / 1394 Balance 1530.25 / 1530.25 1394 / 1394 Lab / Micro Data Result Diagrams: 07/24/21 05:20 07/24/21 05:20 Labs: Laboratory Results - last 24 hr 07/23/21 17:11: POC Glucose 131 H 07/23/21 21:59: POC Glucose 154 H 07/24/21 00:30: Sodium 137, Potassium 4.3, Chloride 103, Carbon Dioxide 29.0, An ion Gap 5, BUN 13, Creatinine 0.79, Estim Creat Clear Calc 34.90, Est GFR (MDRD) Af Amer 89, Est GFR (MDRD) Non-Af 74, BUN/Creatinine Ratio 16.4, Glucose 146 H, Calcium 9.5 07/24/21 05:20: WBC 12.1 H, RBC 4.17 L, Hgb 12.6, Hct 36.4 L, MCV 87.3, MCH 30.2, MCHC 34.6, RDW Std Deviation 38.5, RDW Coeff of Elaine 12.0, Plt Count 228, MPV 9.6, Immature Gran % (Auto) 0.200, Neut % (Auto) 74.3 H, Lymph % (Auto) 18.6 L, [place] % (Auto) 6.1, Eos % (Auto) 0.5, Baso % (Auto) 0.3, Absolute Neuts (auto) 9.0 H, Absolute Lymphs (auto) 2.24, Nucleated RBC % 0 07/24/21 05:20: Sodium 137, Potassium 4.2, Chloride 104, Carbon Dioxide 29.0, Anion Gap 4 L, BUN 12, Creatinine 0.78, Estim Creat Clear Calc 34.90, Est GFR (MDRD) Af Amer 91, Est GFR (MDRD) Non-Af 75, BUN/Creatinine Ratio 15.4, Glucose 122 H, Calcium 8.9 07/24/21 06:25: POC Glucose 109 H Assessment & Plan Assessment/Plan (1) 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 Her compression dressing is dry and intact. No signs of bleeding. The center forehead skin flap incision is well approximated. No active bleeding, incision and sutures are dry and intact. The area is very sensitive to light palpation. Right neck donor site dressing removed because it is bothering the patient. The incision and sutures are dry and intact. No bruising. A dry dressing was placed over the incision. She is to keep her head elevated. She is to keep the compression dressing in place and not get it wet until she is seen in the office on Wednesday. She may wash the central forehead incision and the right neck donor site incision gently with soap and water and then place a thin layer of antibiotic ointment on them daily. She may cover them with dry gauze, if that is most comfortable for her. Will send her home with [place] for pain. She may take acetaminophen for mild pain. She is not to take ibuprofen or aleve until she is seen in the office on Wednesday. She will go home on Clindamycin with a probiotic for a few days. She is to follow up on Wednesday07/28/21 at 4:00 pm in the office to have her compression dressing removed. She can be discharged home later today. Charges/Coding Procedures Integumentary [id number]: [id number] Global Visit
== END 2021-07-24 14:15 | disposition home or self-care (01) ==
LOC: SDC 14:51 → MS3 14:51
PROVIDERS: Nurse Practitioner Family; Admitting Provider Surgery; PCP Family Medicine; Referring Provider Surgery; Visit Provider Surgery
PROC: (CPT 11643; principal; 2021-07-23 09:30)
DX: L57.0 Actinic keratosis (principal); E11.9 Type 2 diabetes mellitus without complications; Z79.899 Other long term (current) drug therapy; Z79.84 Long term (current) use of oral hypoglycemic drugs; I10 Essential (primary) hypertension; E78.1 Pure hyperglyceridemia; F41.9 Anxiety disorder, unspecified; D04.39 Carcinoma in situ of skin of other parts of face
CPT/HCPCS: 11643 ×2; 14041; 15240; 36415; 80048; 82962; 84134; 85025; 88305; J7120; J2405

== ENCOUNTER → 2023-04-02 | Outpatient (CLI) | payer MEDICARE, SELFPAY ==
--- NOTE | 2023-04-02 09:57 | BI_ITS ---
MAMMOGRAPHY - BILATERAL SCREENING REASON FOR EXAM: Female, 82 years old. Routine annual screening examination. PERTINENT HISTORY: Daughter with breast cancer. Grandmother with breast cancer. Aunt with breast cancer. Remote right excisional breast biopsy. TECHNIQUE: Digital bilateral breast david (3D mammographic acquisition) in the CC and MLO projections. 2-D mediolateral oblique (MLO) and craniocaudad (CC) views of both breasts were obtained. CAD: Full Field Digital Mammography with Computer Added Detection was performed. COMPARISON: Comparison is made with prior examination of February 05, 2021 and October 25, 2019. FINDINGS: Breast Composition: The breasts are heterogeneously dense, which may obscure small masses. There are no dominant masses or suspicious calcifications. The previously seen well-defined nodule in the upper lateral aspect of the left breast has resolved. Small benign-appearing bilateral axillary lymph nodes. No other significant abnormalities are identified. BI/SCRN MAMM (CAD)W/DAVID BILAT IMPRESSION: Stable bilateral screening mammogram. Yearly follow-up mammogram recommended. (A) ASSESSMENT CATEGORY: BIRADS Category 2: Benign. A letter regarding these results will be sent to the patient by the facility within 30 days. Approximately 10% of breast cancers are not detected by mammography. A normal mammogram should not delay biopsy of a clinically suspicious abnormality. [id number] Electronically Signed: Florentino Narvaez MD at 12:13 EST ,
== END | disposition home or self-care (01) ==
LOC: OPBI 09:56
PROVIDERS: PCP Nurse Practitioner Family; Referring Provider Nurse Practitioner Family; Visit Provider Nurse Practitioner Family
DX: Z12.31 Encounter for screening mammogram for malignant neoplasm of breast (principal); Z80.3 Family history of malignant neoplasm of breast
CPT/HCPCS: 77063; 77067

== ENCOUNTER → 2024-03-24 | Outpatient (CLI) | payer MEDICARE, SELFPAY ==
[2024-03-24 12:36] LABS: Absolute Lymphocyte Count 2.26 X10^3/uL (0.83-4.51); Absolute Neutrophil Count 4.8 X10^3/uL (2.0-7.7); Basophil# 0.06 X10^3/uL; Basophil% 0.8 % (0-1); Eosinophil# 0.25 X10^3/uL; Eosinophils% 3.2 % (0-5); Hematocrit 41.9 % (37-47); Hemoglobin 13.7 g/dL (12.0-15.0); Lymphocyte # 2.26 X10^3/ul (0.83-4.51); Lymphocyte % 28.9 % (19-41); Mean Corp Hgb Conc 32.7 g/dL (32-36); Mean Corpuscular Hgb 29.3 pg (27.0-32.0); Mean Corpuscular Volume 89.5 fL (81-99); Monocyte# 0.46 X10^3/uL; Monocyte% 5.9 % (0-10); NRBC Flagged by Analyzer 0 % (0-5); Neutrophil # 4.76 X10^3/uL (2.7-7.7); Neutrophil % 60.8 % (47-70); Platelet Count 293 K/mm3 (150-450); RBC Distribution Width CV 12.2 % (11.6-14.6); RBC Distribution Width SD 39.6 fl (35.1-43.9); Red Blood Count 4.68 M/mm3 (4.2-5.4); White Blood Count 7.8 K/mm3 (4.4-11.0)
[2024-03-24 13:27] LABS: ALB/GLOB Ratio 1.3 RATIO (0.9-2.4); AST(SGOT) 14 U/L (15-37); Alanine Aminotransfer ALT/SGPT 23 U/L (13-56); Albumin, Serum 4.1 g/dL (3.2-5.0); Alkaline Phosphatase 52 U/L (45-117); Anion Gap 5 (5-15); BUN 14 mg/dL (7-18); BUN/Creat Ratio 17.4 RATIO (10-20); Calcium,Total 9.7 mg/dL (8.5-10.1); Chloride 107 mmol/L (98-107); Cholesterol 146 mg/dL (200); EST Glomerular Filtration Rate 72 mL/min (>60); Est Glom Filt Rate - Afr Amer 87 mL/min (>60); Globulin 3.1 g/dL (2.2-4.2); Glucose 111 mg/dL (74-106); High Density Lipoprotein 36 mg/dL; Potassium 4.4 mmol/L (3.5-5.1); Protein, Total 7.2 g/dL (6.4-8.2); Sodium Level 140 mmol/L (136-145); Triglycerides 359 mg/dL; Very Low Density Lipoprotein 72 mg/dL (5-40)
[2024-03-24 14:12] LABS: Vitamin D,25 Hydroxy 67.3 ng/mL
== END | disposition home or self-care (01) ==
LOC: MTLAB 10:20
PROVIDERS: PCP Nurse Practitioner Family; Referring Provider Nurse Practitioner Family; Visit Provider Nurse Practitioner Family
DX: I10 Essential (primary) hypertension (principal); E78.5 Hyperlipidemia, unspecified; E55.9 Vitamin D deficiency, unspecified
CPT/HCPCS: 36415; 80053; 80061; 82306; 85025

== ENCOUNTER → 2024-04-06 | Outpatient (CLI) | payer MEDICARE, SELFPAY ==
--- NOTE | 2024-04-06 11:49 | BI_ITS ---
MAMMOGRAPHY - BILATERAL SCREENING REASON FOR EXAM: Female, 83 years old. Routine annual screening examination. PERTINENT HISTORY: Daughter with breast cancer. Grandmother with breast cancer. Aunt with breast cancer. Remote right excisional breast biopsy. TECHNIQUE: Digital bilateral breast david (3D mammographic acquisition) in the CC and MLO projections. 2-D mediolateral oblique (MLO) and craniocaudad (CC) views of both breasts were obtained. CAD: Full Field Digital Mammography with Computer Added Detection was performed. COMPARISON: Comparison is made with prior study April 02, 2023 and February 05, 2021. FINDINGS: Breast Composition: The breasts are heterogeneously dense, which may obscure small masses. There are no dominant masses or suspicious calcifications. Stable fat-containing bilateral axillary lymph nodes. Stable scattered bilateral calcifications. No other significant abnormalities are identified. There has been no significant change since the prior study. BI/SCRN MAMM (CAD)W/DAVID BILAT IMPRESSION: Stable bilateral screening mammogram. Yearly follow-up mammogram recommended. (A) ASSESSMENT CATEGORY: BIRADS Category 2: Benign. A letter regarding these results will be sent to the patient by the facility within 30 days. Approximately 10% of breast cancers are not detected by mammography. A normal mammogram should not delay biopsy of a clinically suspicious abnormality. [id number] Electronically Signed: Florentino Narvaez MD at 13:11 EST ,
--- NOTE | 2024-04-06 12:17 | ART_ITS ---
Reason For Study: BLE Cramps and Spasms Procedure A bilateral lower extremity continuous wave Doppler with analog waveform analysis and ankle brachial indexes. Left Segmental Pressures Left brachial= 138mmHg. Left posterior tibial artery = 148mmHg. Left dorsalis pedis artery = 157mmHg. Left digit = 88 mmHg. The left posterior tibial artery waveforms are biphasic. The left dorsalis pedis waveforms are biphasic. Right Segmental Pressures Right brachial= 131mmHg. Right posterior tibial artery = 157mmHg. Right dorsalis pedis artery = 148mmHg. Right digit = 97 mmHg. The right posterior tibial artery waveforms are triphasic. The right dorsalis pedis waveforms are biphasic. Indices The right ankle brachial index by the posterior tibial artery is 1.14. The right ankle brachial index by the dorsalis pedis is 1.07. The right digital-brachial index is 0.70. The left ankle brachial index by the posterior tibial artery is 1.07. The left ankle brachial index by the dorsalis pedis is 1.14. The left digital-brachial index is 0.64. VL/Ankle Brachial Index Interpretation Summary Triphasic and biphasic Doppler waveforms are noted at ankle level on the right. Biphasic Doppler waveforms are noted at ankle level on the left. Pulse-volume recordings appear satisfactory at ankle and digital level bilaterally. Resting ankle-brachial indices are normal bilate rally. Digital- brachial indices are mildly diminished bilaterally. Arterial flow appears normal at ankle level bilaterally. There is evidence of m ild arterial occlusive disease at digital level bilaterally. Ordering Physician: Yas Dowling Referring Physician: YAS DOWLING TELEPHONE ORDER CLERK ROOM SERVICE-C Performed By: Jah Busch RVT
== END | disposition home or self-care (01) ==
LOC: CVS 11:43
PROVIDERS: PCP Nurse Practitioner Family; Referring Provider Nurse Practitioner Family; Visit Provider Nurse Practitioner Family
DX: Z12.31 Encounter for screening mammogram for malignant neoplasm of breast (principal); R25.2 Cramp and spasm; R09.89 Other specified symptoms and signs involving the circulatory and respiratory systems
CPT/HCPCS: 77063; 77067; 93922

== ENCOUNTER → 2025-04-06 | Outpatient (CLI) | payer MEDICARE, SELFPAY ==
[2025-04-06 12:29] LABS: Creatinine, Urine (random) 40.30 mg/dL (28.00-217.00); Microalbumin,Random Urine 23.0 mg/L (<20 mg/L)
[2025-04-06 12:43] LABS: Hematocrit 40.7 % (37-47); Hemoglobin 13.6 g/dL (12.0-15.0); Immature Granulocytes Count 0.030 X10^3/uL (0.0-0.0); Mean Corp Hgb Conc 33.4 g/dL (32-36); Mean Corpuscular Volume 89.3 fL (81-99); Mean Platelet Vol. 9.8 fl (6.2-12.0); NRBC Flagged by Analyzer 0 % (0-5); Platelet Count 288 K/mm3 (150-450); RBC Distribution Width CV 12.2 % (11.6-14.6); RBC Distribution Width SD 39.9 fl (35.1-43.9); Red Blood Count 4.56 M/mm3 (4.2-5.4); White Blood Count 9.3 K/mm3 (4.4-11.0)
[2025-04-06 13:14] LABS: AST(SGOT) 23 U/L (<=31); Alanine Aminotransfer ALT/SGPT 16 U/L (<=34); Albumin, Serum 4.3 g/dL (3.4-4.8); Alkaline Phosphatase 50 U/L (35-104); Anion Gap 11 (5-15); BUN 11 mg/dL (4-19); BUN/Creat Ratio 14.1 RATIO (10-20); Calcium,Total 9.8 mg/dL (7.6-11.0); Carbon Dioxide 26.5 mmol/L (21.0-32.0); Chloride 101 mmol/L (98-108); Cholesterol 119 mg/dL (<=200); Globulin 2.9 g/dL (2.2-4.2); Glucose 112 mg/dL (70-99); Low Density Lipoprotein Calc. 52 mg/dL; Potassium 4.5 mmol/L (3.3-5.1); Triglycerides 211 mg/dL; Very Low Density Lipoprotein 42 mg/dL (5-40); Vitamin D,25 Hydroxy 50.8 ng/mL (30-100); cholesterol:hdl ratio screen 3.60
== END | disposition home or self-care (01) ==
LOC: MTLAB 09:30
PROVIDERS: PCP Nurse Practitioner Family; Referring Provider Nurse Practitioner Family; Visit Provider Nurse Practitioner Family
DX: I10 Essential (primary) hypertension (principal); E11.9 Type 2 diabetes mellitus without complications; E78.5 Hyperlipidemia, unspecified; E55.9 Vitamin D deficiency, unspecified
CPT/HCPCS: 36415; 80053; 80061; 82043; 82306; 82570; 83036; 85025